=== PATIENT | female | born 1985 | race Caucasian/White ===

== ENCOUNTER 2022-11-12 15:38 | Outpatient (REF) | payer OTHER, MEDICAID, SELFPAY ==
[2022-11-12 17:34] LABS: Influenza A PCR NEGATIVE (Negative); Influenza B PCR NEGATIVE (Negative); Resp Syncy Virus RNA Qual PCR NEGATIVE (Negative); SARS COV2 PCR INHOUSE NEGATIVE (Negative)
== END 2022-11-12 15:39 | disposition home or self-care (01) ==
LOC: HO.LAB 15:38
PROVIDERS: Visit Provider Internal Medicine
DX: R09.89 Other specified symptoms and signs involving the circulatory and respiratory systems (principal); Z20.822 Contact with and (suspected) exposure to COVID-19
CPT/HCPCS: 0241U

== ENCOUNTER 2023-12-31 08:13 | Outpatient (AMB) | payer OTHER, SELFPAY ==
--- OUTSIDE RECORDS SUMMARY | 2023-12-31 08:15 | XMS_ITS | Continuity of Care Document ---
Author Name Unknown Organization [facility] er Address [address] [address]- Care Team Providers Care Registered Nurse Cardiac Name Role Phone Not on Staff, PCP Primary Care Physician Unavail able [facility]): 01/20/23 - 01/27/[address] [address] Attending Physician: Marline Ibarra Admitting Physician: Marline Ibarra Problem List Condition Confirmation Course Effective Dates Status Health St atus Informant Adjustment disorder with depressed mood Confirmed Active Note * Marline Ibarra: PERFORM, SIGN, VERIFY Event Display: Patient Education/Instruction Authored Date: [id number] [facility] *FAM ADVO Clinical Summary Name EULOGIO MEJÍA Age 37 Years 1985 PCP Not on Staff, PCP PCP Phone Visit Date 01/20/2023 16:00:00 Additional Instructions: Scheduled Appointments?? Future Appointments ?No Future Appointments Scheduled Follow-Up Instructions ?? With: Address: When: Marline FERNANDO [address] [place] [address] Business (1) In 6 weeks 03/03/2023 Comments: Phone session Diagnosis Medications: Please continue your medications until treatment is completed or stopped by your provider. Discuss any questions related to medications with your provider. Allergy Info:?? Medications Given This Visit Future Orders ?No future orders Vital Signs Height Weight BMI Blood Pressure / Temperature Pulse Rate Respiratory Rate 02 Sat Mode of Delivery / You can now view a summary of your hospital visit from the comfort of your home through a free online portal called eTect. eTect is a website that allows you to securely view your medical information including discharge summary, medications and follow-up visits. ??You can alsosend a secure electronic message to your doctor???s office to request appointments, renew medications or just ask a question. You can enroll at [email or web address] or register during your next office visit. Disclaimer:?? The information provided is of a general nature and is intended to be used in conjunction with the recommendations and advice of your health care practitioner. ??Every effort has been made to ensure that the information provided is accurate and complete at the time it is provided to you however, as your needs change, or, as new ??information becomes available, different or additional instructions may be required. If you have questions, please consult with your primary care provider or pharmacist, as appropriate. ??This information is not intended to serve as substitution for assessment and evaluation by a qualified health care provider. If you do not have a primary care provider, you may find a [facility] provider by calling [facility] [employer] at [phone]. For information about the plan of care including goals and instructions for your diagnosis, please see the patient education orders section of this document. Patient Education Materials?? The content of this educational material or handout may have been modified, supplemented, or adapted from its original content and format to support your individualized medical care. Patient Care team information Care Team Personnel Name: Not on Staff, PCP Position: [facility] Physician (General Medicine) Member Role: PCP Care Team Related Persons Name: AUNDREA MEJÍA Address: [address] [address]
--- OUTSIDE RECORDS SUMMARY | 2023-12-31 08:15 | XMS_ITS | Continuity of Care Document ---
Author Name Unknown Organization [facility] er Address [address] [address]- Care Team Providers Care Notcher Name Role Phone Not on Staff, PCP Primary Care Physician Unavail able [facility]s): 01/22/23 - 04/02/[address] [address] Attending Physician: Marline Ibarra Admitting Physician: Marline Ibarra Problem List Condition Confirmation Course Effective Dates Status Health St atus Informant Adjustment disorder with depressed mood Confirmed Active Patient Care team information Care Team Personnel Name: Not on Staff, PCP Position: S Physician (General Medicine) Member Role: PCP Care Team Related Persons Name: AUNDREA MEJÍA Address: home [address] [place] [address]
--- OUTSIDE RECORDS SUMMARY | 2023-12-31 08:15 | XMS_ITS | Continuity of Care Document ---
Author Name Unknown Organization [facility] er Address [address] [place] [address]- Care Team Providers Care Hip Hop Artist Name Role Phone Not on Staff, PCP Primary Care Physician Unavail able [facility](s): 12/16/22 - 12/23/[address] [address] Attending Physician: Marline Ibarra Admitting Physician: Marline Ibarra Problem List Condition Confirmation Course Effective Dates Status Health St atus Informant Adjustment disorder with depressed mood Confirmed Active Note * Marline Ibarra: PERFORM, SIGN, VERIFY Event Display: Patient Education/Instruction Authored Date: [id number] [facility] *FAM ADVO Clinical Summary Name EULOGIO TYLER Age 37 Years 1985 PCP Not on Staff, PCP PCP Phone Visit Date 12/16/2022 16:16:00 Additional Instructions: Scheduled Appointments?? Future Appointments ?No Future Appointments Scheduled Follow-Up Instructions ?? With: Address: When: Marline FERNANDO [address] [place] [address] [facility] (1) 01/20/2023 4:00 PM Comments: Phone session Diagnosis Medications: Please continue [...] home through a free online portal called WhistleTalk. WhistleTalk is a website that allows you to securely view your medical information including discharge summary, medications and follow-up visits. ??You can alsosend a secure electronic message to your doctor???s office to request appointments, renew medications or just ask a question. You can enroll at [email or web address] or register during your next office visit. [...] primary care provider, you may find a [facility] provider by calling [facility] [employer] at [phone]. For information about the plan of care [...] Personnel Name: Not on Staff, PCP Position: [facility] Physician (General Medicine) Member Role: PCP Care Team Related Persons Name: MEJÍAPILAR WALTONIA Address: [address] [address]
--- OUTSIDE RECORDS SUMMARY | 2023-12-31 08:16 | XMS_ITS | Continuity of Care Document ---
Author Name Unknown Organization [facility] er Address [address] [place] [address]- Care Team Providers Care Maintenance Inspector Name Role Phone Not on Staff, PCP Primary Care Physician Unavail able [facility](s): 05/30/23 - 06/06/[address] [address] Attending Physician: Marline Ibarra Admitting Physician: Marline Ibarra Problem List Condition Confirmation Course Effective Dates Status Health St atus Informant Adjustment disorder with depressed mood Confirmed Active Note * Marline Ibarra: PERFORM, SIGN, VERIFY Event Display: Patient Education/Instruction Authored Date: [id number] [facility] *FAM ADVO Clinical Summary Name EULOGIO TYLER Age 38 Years 1985 PCP Not on Staff, PCP PCP Phone Visit Date 05/30/2023 16:00:00 Additional Instructions: Scheduled Appointments?? Future Appointments ?No Future Appointments Scheduled Follow-Up Instructions ?? With: Address: When: Marline FERNANDO [address] [place] [address] Business (1) 08/01/2023 3:30 PM Comments: Phone session Diagnosis Medications: Please [...] home through a free online portal called logtrust. logtrust is a website that allows you to securely view your medical information including discharge summary, medications and follow-up visits. ??You can alsosend a secure electronic message to your doctor???s office to request appointments, renew medications or just ask a question. You can enroll at [email or web address] or register during your next office [...] primary care provider, you may find a [facility] provider by calling [facility] [employer] Link at [phone]. For information about the plan of care [...] Personnel Name: Not on Staff, PCP Position: [facility] Physician (General Medicine) Member Role: PCP Care Team Related Persons Name: PILAR MEJÍAIA Address: [address] [address]
--- OUTSIDE RECORDS SUMMARY | 2023-12-31 08:16 | XMS_ITS | Continuity of Care Document ---
Author Name Unknown Organization [facility] er Address [address] [place] [address]- Care Team Providers Care Baking Powder Mixer Name Role Phone Not on Staff, PCP Primary Care Physician Unavail able Encounter [facility] Date(s): 10/24/23 - 10/31/[address] [address] Attending Physician: Marline Brooks Admitting Physician: Marline Brooks Problem List Condition Confirmation Course Effective Dates Status Health St atus Informant Adjustment disorder with depressed mood Confirmed Active Note * Marline Brooks: PERFORM, SIGN, VERIFY Event Display: Patient Education/Instruction Authored Date: [id number] [facility] *FAM ADVO Clinical Summary Name EULOGIO TYLER Age 38 Years 1985 PCP Not on Staff, PCP PCP Phone Visit Date 10/24/2023 15:39:00 Additional Instructions: Scheduled Appointments?? Future Appointments ?No Future Appointments Scheduled Follow-Up Instructions ?? With: Address: When: Marline Martinez [address] [place] [address] Business (1) 12/05/2023 3:00 PM Comments: Phone session Diagnosis Medications: Please [...] home through a free online portal called Videum. Videum is a website that allows you to securely view your medical information including discharge summary, medications and follow-up visits. ??You can alsosend a secure electronic message to your doctor???s office to request appointments, renew medications or just ask a question. You can enroll at [email or web address] or register during your next office visit. [...] primary care provider, you may find a [facility] provider by calling [facility] [employer] Link at [phone]. [facility], in keeping with [facility] guidance, no longer requires face masks for staff, patientsor visitors in most situations. Similar to time spent indoors at other locations, there is the chance that you were exposed to respiratory viruses during your time with us (such as flu or COVID-19).? If you develop symptoms concerning for a viral respiratory infection, please seek testing (and treatment if indicated) from your medical provider or home test kit. For information about the plan of care [...] Related Persons Name: AUNDREA MEJÍA Address: home [address] [place] [address]
--- OUTSIDE RECORDS SUMMARY | 2023-12-31 08:16 | XMS_ITS | Continuity of Care Document ---
Author Name Unknown Organization [facility] er Address [address] [place] [address]- Care Team Providers Care Application Development Team Lead Name Role Phone Not on Staff, PCP Primary Care Physician Unavail able [facility]): 10/07/22 - 10/14/[address] [address] Attending Physician: Marline Ibarra Admitting Physician: Marline Ibarra Problem List Condition Confirmation Course Effective Dates Status Health St atus Informant Adjustment disorder with depressed mood Confirmed Active Note * Marline Ibarra: PERFORM, SIGN, VERIFY Event Display: Patient Education/Instruction Authored Date: [id number] [facility] *FAM ADVO Clinical Summary Name EULOGIO TYLER Age 37 Years 1985 PCP Not on Staff, PCP PCP Phone Visit Date 10/07/2022 16:10:00 Additional Instructions: Scheduled Appointments?? Future Appointments ?No Future Appointments Scheduled Follow-Up Instructions ?? With: Address: When: Marline FERNANDO [address] [place] [address] [facility] (1) 11/18/2022 4:00 PM Comments: Phone session Diagnosis Medications: [...] home through a free online portal called [employer]. [employer] is a website that allows you to securely view your medical information including discharge summary, medications and follow-up visits. ??You can alsosend a secure electronic message to your doctor???s office to request appointments, renew medications or just ask a question. You can enroll at [email or web address] or register during your next office [...] primary care provider, you may find a [facility] provider by calling [facility] [employer] at [phone]. For information about the plan of care [...] PCP Position: [facility] Physician (General Medicine) Member Role: PCP Care Team Related Persons Name: MEJÍASUSANNAAUNDREA Address: [address] [address]
--- OUTSIDE RECORDS SUMMARY | 2023-12-31 08:16 | XMS_ITS | Continuity of Care Document ---
Author Name Unknown Organization [facility] er Address [address] [place] [address]- Care Team Providers Care Cigar Wrapper Tender Automatic Name Role Phone Not on Staff, PCP Primary Care Physician Unavail able [facility]counter [facility] Date(s): 03/06/23 - 03/13/[address] [address] Attending Physician: Marline Ibarra Admitting Physician: Marline Ibarra Problem List Condition Confirmation Course Effective Dates Status Health St atus Informant Adjustment disorder with depressed mood Confirmed Active Note * Marline Ibarra: PERFORM, SIGN, VERIFY Event Display: Patient Education/Instruction Authored Date: [id number] [facility] *FAM ADVO Clinical Summary Name EULOGIO MEJÍA Age 38 Years 1985 PCP Not on Staff, PCP PCP Phone Visit Date 03/06/2023 14:00:00 Additional Instructions: Scheduled Appointments?? Future Appointments ?No Future Appointments Scheduled Follow-Up Instructions ?? With: Address: When: Marline FERNANDO [address] [place] [address] [facility] (1) 04/14/2023 3:00 PM Comments: Phone session Diagnosis Medications: [...] home through a free online portal called Uppidy. Uppidy is a website that allows you to [...] care provider, you may find a [facility] provider by calling [facility] [employer] at [phone]. For information about the plan of care [...] Not on Staff, PCP Position: [facility] Physician (General Medicine) Member Role: PCP Care Team Related Persons Name: MEJÍASUSANNAAUNDREA Address: [address] [address]
--- OUTSIDE RECORDS SUMMARY | 2023-12-31 08:16 | XMS_ITS | Continuity of Care Document ---
Author Name Unknown Organization [facility] er Address [address] [place] [address]- Care Team Providers Care Public Relations Name Role Phone Not on Staff, PCP Primary Care Physician Unavail able [facility]counter [facility] Date(s): 09/15/23 - 11/23/[address] [address] Attending Physician: Marline Brooks Admitting Physician: Marline Brooks Problem List Condition Confirmation Course Effective Dates Status Health St atus Informant Adjustment disorder with depressed mood Confirmed Active Patient Care team information Care Team Personnel Name: Not on Staff, PCP Position: S Physician (General Medicine) Member Role: PCP Care Team Related Persons Name: AUNDREA MEJÍA Address: home [address] [place] [address]
--- OUTSIDE RECORDS SUMMARY | 2023-12-31 08:17 | XMS_ITS | Continuity of Care Document ---
Author Name Unknown Organization [facility] er Address [address] [address]- Care Team Providers Care Cabin Outfitter Name Role Phone Not on Staff, PCP Primary Care Physician Unavail able [facility]counter [facility] Date(s): 04/14/23 - 04/21/[address] [address] Attending Physician: Marline Ibarra Admitting Physician: Marline Ibarra Problem List Condition Confirmation Course Effective Dates Status Health St atus Informant Adjustment disorder with depressed mood Confirmed Active Patient Care team information Care Team Personnel Name: Not on Staff, PCP Position: S Physician (General Medicine) Member Role: PCP Care Team Related Persons Name: AUNDREA MEJÍA Address: home [address] [place] [address]
--- OUTSIDE RECORDS SUMMARY | 2023-12-31 08:17 | XMS_ITS | Continuity of Care Document ---
Author Name Unknown Organization [facility] er Address [address] [place] [address]- Care Team Providers Care Ammunition Components Inspector Name Role Phone Not on Staff, PCP Primary Care Physician Unavail able [facility]counter [facility](s): 09/12/23 - 09/19/[address] [address] Attending Physician: Marline Brooks Admitting Physician: Marline Brooks Problem List Condition Confirmation Course Effective Dates Status Health St atus Informant Adjustment disorder with depressed mood Confirmed Active Note * Marline Brooks: PERFORM, SIGN, VERIFY Event Display: Patient Education/Instruction Authored Date: [id number] [facility] *FAM ADVO Clinical Summary Name EULOGIO MEJÍA Age 38 Years 1985 PCP Not on Staff, PCP PCP Phone Visit Date 09/12/2023 15:47:00 Additional Instructions: Scheduled Appointments?? Future Appointments ?No Future Appointments Scheduled Follow-Up Instructions ?? With: Address: When: Marline Martinez [address] [place] [address] Business (1) 10/24/2023 3:30 PM Comments: Phone Session Diagnosis Medications: Please continue your medications until [...] home through a free online portal called [employer]handyhand. [employer]hand[employer] is a website that allows you to securely view your medical information including discharge summary, medications and follow-up visits. ??You can alsosend a secure electronic message to your doctor???s office to request appointments, renew medications or just ask a question. You can enroll at [email or web address] or register during your next [...] care provider, you may find a [facility] provider by calling [facility] [employer] Link at [phone]. [facility], in keeping with [facility] guidance, no longer requires face masks [...] Related Persons Name: AUNDREA MEJÍA Address: home [address] [place] [address]
--- OUTSIDE RECORDS SUMMARY | 2023-12-31 08:17 | XMS_ITS | Continuity of Care Document ---
Author Name Unknown Organization [facility] er Address [address] [place] [address]- Care Team Providers Care Food Service Worker Name Role Phone Not on Staff, PCP Primary Care Physician Unavail able [facility](s): 12/05/23 - 12/12/[address] [address] Attending Physician: Marline Brooks Admitting Physician: Marline Brooks Problem List Condition Confirmation Course Effective Dates Status Health St atus Informant Adjustment disorder with depressed mood Confirmed Active Note * Marline Brooks: PERFORM, SIGN, VERIFY Event Display: Patient Education/Instruction Authored Date: [id number] [facility] *FAM ADVO Clinical Summary Name EULOGIO TYLER Age 38 Years 1985 PCP Not on Staff, PCP PCP Phone Visit Date 12/05/2023 15:00:00 Additional Instructions: Scheduled Appointments?? Future Appointments ?No Future Appointments Scheduled Follow-Up Instructions ?? With: Address: When: Marline Martinez [address] [place] [address] Business (1) 01/16/2024 3:00 PM Comments: Phone session Diagnosis Medications: [...] home through a free online portal called [employer]. [employer] is a website that allows you to securely view your medical information including discharge summary, medications and follow-up visits. ??You can alsosend a secure electronic message to your doctor???s office to request appointments, renew medications or just ask a question. You can enroll at [email or web address] or register during your next office [...] [facility] provider by calling [facility] [employer] Link at [phone]. [facility], in keeping with [facility] guidance, no longer requires face masks [...] Persons Name: AUNDREA MEJÍA Address: home [address] [place] [address]
--- OUTSIDE RECORDS SUMMARY | 2023-12-31 08:17 | XMS_ITS | Continuity of Care Document ---
Author Name Unknown Organization [facility] er Address [address] [address]- Care Team Providers Care Core Blower Operator Name Role Phone Not on Staff, PCP Primary Care Physician Unavail able [facility]counter [facility](s): 09/03/22 - 10/30/[address] [address] Attending Physician: Marline Ibarra Admitting Physician: Marline Ibarra Problem List Condition Confirmation Course Effective Dates Status Health St atus Informant Adjustment disorder with depressed mood Confirmed Active Patient Care team information Care Team Personnel Name: Not on Staff, PCP Position: S Physician (General Medicine) Member Role: PCP Care Team Related Persons Name: AUNDREA MEJÍA Address: home [address] [place] [address]
--- OUTSIDE RECORDS SUMMARY | 2023-12-31 08:17 | XMS_ITS | Continuity of Care Document ---
Author Name Unknown Organization [facility] er Address [address] [address]- Care Team Providers Care Grocery Department Manager Name Role Phone Not on Staff, PCP Primary Care Physician Unavail able [facility]counter [facility] Date(s): 04/23/23 - 06/25/[address] [address] Attending Physician: Marline Ibarra Admitting Physician: Marline Ibarra Problem List Condition Confirmation Course Effective Dates Status Health St atus Informant Adjustment disorder with depressed mood Confirmed Active Patient Care team information Care Team Personnel Name: Not on Staff, PCP Position: S Physician (General Medicine) Member Role: PCP Care Team Related Persons Name: AUNDREA MEJÍA Address: home [address] [place] [address]
--- OUTSIDE RECORDS SUMMARY | 2023-12-31 08:17 | XMS_ITS | Continuity of Care Document ---
Author Name Unknown Organization [facility] er Address [address] [place] [address]- Care Team Providers Care Hand Nailer Name Role Phone Not on Staff, PCP Primary Care Physician Unavail able [facility]counter [facility] Date([facility]): 08/[facility]/23 - 08/08/[address] [address] Attending Physician: Marline Ibarra Admitting Physician: Marline Ibarra Problem List Condition Confirmation Course Effective Dates Status Health St atus Informant Adjustment disorder with depressed mood Confirmed Active Note * Marline Ibarra: PERFORM, SIGN, VERIFY Event Display: Patient Education/Instruction Authored Date: [id number] [facility] *FAM ADVO Clinical Summary Name EULOGIO TYLER Age 38 Years 1985 PCP Not on Staff, PCP PCP Phone Visit Date 08/01/2023 15:33:00 Additional Instructions: Scheduled Appointments?? Future Appointments ?No Future Appointments Scheduled Follow-Up Instructions ?? With: Address: When: Marline FERNANDO [address] [place] [address] Business (1) 09/12/2023 3:30 PM Comments: Phone session Diagnosis Medications: [...] home through a free online portal called [email or web address]. [email or web address] is a website that allows you to securely view your medical information including discharge summary, medications and follow-up visits. ??You can alsosend a secure electronic message to your doctor???s office to request appointments, renew medications or just ask a question. You can enroll at [email or web address] or register during your next office visit. [...] care provider, you may find a [facility] provider by calling [facility] [employer] Link at [phone]. [facility], in keeping with [facility] guidance, no longer requires face masks for [...] Persons Name: AUNDREA MEJÍA Address: home [address] [place] [address]
--- OUTSIDE RECORDS SUMMARY | 2023-12-31 08:18 | XMS_ITS | Continuity of Care Document ---
Author Name Unknown Organization [facility] er Address [address] [place] [address]- Care Team Providers Care Medical Instructor Name Role Phone Not on Staff, PCP Primary Care Physician Unavail able [facility]counter [facility] Date(s): 11/18/22 - 11/25/[address] [address] Attending Physician: Marline Ibarra Admitting Physician: Marline Ibarra Problem List Condition Confirmation Course Effective Dates Status Health St atus Informant Adjustment disorder with depressed mood Confirmed Active Note * Marline Ibarra: PERFORM, SIGN, VERIFY Event Display: Patient Education/Instruction Authored Date: [id number] [facility] *FAM ADVO Clinical Summary Name EULOGIO TYLER Age 37 Years 1985 PCP Not on Staff, PCP PCP Phone Visit Date 11/18/2022 16:18:00 Additional Instructions: Scheduled Appointments?? Future Appointments ?No Future Appointments Scheduled Follow-Up Instructions ?? With: Address: When: Marline FERNANDO [address] [place] [phone] [facility] (1) 12/16/2022 4:00 PM Comments: Phone Session Diagnosis Medications: Please [...] home through a free online portal called [employer]. [employer] is a website that allows you to securely view your medical information including discharge summary, medications and follow-up visits. ??You can alsosend a secure electronic message to your doctor???s office to request appointments, renew medications or just ask a question. You can enroll at [email or web address] or register during your next office visit. [...] primary care provider, you may find a [facility] provider by calling [facility] [employer] Link at [phone]. For information about the plan of care [...] Personnel Name: Not on Staff, PCP Position: [facility] Physician (General Medicine) Member Role: PCP Care Team Related Persons Name: PILAR MEJÍAIA Address: [address] [address]
--- NOTE | 2023-12-31 08:26 | AM.OFFWIN_ITS ---
Intake Vital Signs 12/31/23 08:28 Weight 192 lb BP 118/70 Blood Pressure Location Lt brachial Position Sitting Pulse 86 Pulse Source Pulse Oximeter Temp 98.8 F Temp Source Temporal Artery Scan Pulse Oximetry (%) 97 Oxygen Delivery Method Room Air Intake Visit Reasons: EP Bilateral Ear pain Intake Note: pt is here today for bilateral ear pain started 1 week ago Patient Tobacco Use Status: Never used Tobacco Allergies azithromycin [Zithromax Z-Vivek] Allergy (Unknown, Verified 12/31/23 08:26) rash latex Allergy (Unknown, Verified 12/31/23 08:26) HIVES pseudoephedrine Adverse Reaction (Unknown, Verified 12/31/23 08:26) AGITATION Antihistamine Allergy (Unknown, Uncoded 11/12/22 11:16) rash Latex Allergy (Unknown, Uncoded 11/12/22 11:16) rash Do you need a note to return to daycare/school/sports/work: No HPI HPI Comments History of Present Illness Details She presents with ear pain She said recent illness with covid; She tested + last week Had headaches, congestion, sinus congestion Now onset ear pain; she said more R side than L Ongoing x 2 days She said better now, was worse this am Dull ache PFSH Social History Patient Tobacco Use Status: Never used Tobacco Review of Systems Const Denies chills and Denies fever(s) ENT Denies ear discharge, Reports otalgia, Reports nasal discharge and Denies sore throat Card Denies dyspnea Resp Denies cough and Denies dyspnea Musc Denies myalgias Physical Exam Vital Signs: Last Vital Signs Temp 98.8 F 12/31/23 08:28 Pulse 86 12/31/23 08:28 BP 118/70 12/31/23 08:28 Pulse Ox 97 12/31/23 08:28 Oxygen Delivery Method Room Air 12/31/23 08:28 General: Non-toxic, NAD. Speaking full sentences. Skin: Warm dry throughout Eye: EOMI HENT: Airway patent. Uvula midline. No pharyngeal erythema or edema. 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 Bilateral canals clear.Small amount of fluid bilaterally. TM non-erythematous, non-bulging. No TM perforation or hemotympanum noted. Respiratory: CTA bilaterally. No wheezes, rales or rhonchi Cardiac: RRR. No murmur MSK: Full ROM extremities. Neurology: A/O. No aphasia or facial droop. Gait without abnormality Psych: Good mood and affect Assessment & Plan Assessment & Plan (1) Otalgia of both ears: Code(s): H92.03 - Otalgia, bilateral Plan: Patient seen and evaluated. No OM or OE on exam Discussed nasal spray Patient gave verbal understanding and had no additional questions or concerns at time of discharge All questions answered (2) Eustachian tube dysfunction: Code(s): H69.90 - Unspecified Eustachian tube disorder, unspecified ear Qualifiers: Laterality: bilateral Qualified Code(s): H69.93 - Unspecified Eustachian tube disorder, bilateral Plan: see above Medications: New ipratropium bromide administer into each nostril 2 sprays intranasal BID-TID 1 week PRN 30 mL 0RF allergy symptoms Coding Level of Care Code Est Pt Level 3 (72617) Diagnoses Otalgia of both ears H92.03 Dysfunction of both eustachian tubes H69.93 Laterality: bilateral
[2023-12-31 08:28] VITALS: BP 118/70; PULSE 86; TEMP 37.1; O2SAT 97
== END 2023-12-31 09:13 | disposition home or self-care (01) ==
PROVIDERS: PCP Internal Medicine; Visit Provider Physician Assistant
DX: H92.03 Otalgia, bilateral (principal); H69.93 Unspecified Eustachian tube disorder, bilateral
CPT/HCPCS: 99213

== ENCOUNTER 2024-01-02 12:35 | Outpatient (AMB) | payer OTHER, SELFPAY ==
--- NOTE | 2024-01-02 12:41 | AM.OFFWIN_ITS ---
Intake Vital Signs 01/02/24 12:50 Weight 194 lb BP 120/100 H Blood Pressure Location Lt brachial Position Sitting Pulse 70 Pulse Source Pulse Oximeter Temp 97.4 F Temp Source Temporal Artery Scan Pulse Oximetry (%) 98 Oxygen Delivery Method Room Air Intake Visit Reasons: EP sinus pain/pressure Intake Note: pt is here today for sinus pain pressure started 2 days ago Patient Tobacco Use Status: Never used Tobacco Allergies azithromycin [Zithromax Z-Vivek] Allergy (Unknown, Verified 01/02/24 12:42) rash latex Allergy (Unknown, Verified 01/02/24 12:42) HIVES pseudoephedrine Adverse Reaction (Unknown, Verified 01/02/24 12:42) AGITATION Antihistamine Allergy (Unknown, Uncoded 11/12/22 11:16) rash Latex Allergy (Unknown, Uncoded 11/12/22 11:16) rash Do you need a note to return to daycare/school/sports/work: Yes HPI HPI Comments History of Present Illness Details 38 y/o female who presents to walk in [facility] with c/o sinus pressure x 2 days. Denies fevers, chills, nausea or vomiting. She was recently (Fri) with similar symptoms and given Nasal [place] which she reports not working. Recent COVID 19 Infection x 1 week ago. Her family sick from COVID infection. [facility] Social History Patient Tobacco Use Status: Never used Tobacco Review of Systems Const All systems reviewed & are unremarkable except as noted in HPI and below Physical Exam Vital Signs: Last Vital Signs Temp 97.4 F 01/02/24 12:50 Pulse 70 01/02/24 12:50 BP 120/100 H 01/02/24 12:50 Pulse Ox 98 01/02/24 12:50 Oxygen Delivery Method Room Air 01/02/24 12:50 Const General: comfortable and no acute distress HEENT Head: Yes normocephalic and Yes atraumatic Ears: external ears normal and TM's normal bilaterally General nose exam: Abnormal mucous membranes and turbinates present boggy and erythematous and Nasal discharge present Face and sinus: Yes sinuses nontender Mouth: moist mucous membranes Throat: Yes uvula midline and Yes postnasal drainage Resp Effort & Inspection: normal respiratory effort and able to speak in complete sentences Auscultation: clear to auscultation bilaterally Cardio Rate: regular rate Rhythm: regular rhythm Assessment & Plan Assessment & Plan (1) Upper respiratory tract infection: Code(s): J06.9 - Acute upper respiratory infection, unspecified Qualifiers: URI type: unspecified viral URI Qualified Code(s): J06.9 - Acute upper respiratory infection, unspecified Plan: - Warm fluids - Rest - OTC cold remedies - Acetaminophen for pain relief. Orders: Orders SARS-CoV2/FLU/RSV Today J06.9 - Acute upper respiratory infection, unspecified Medications: New amoxicillin 250 mg PO BID 10 caps 0RF 5 days J06.9 - Acute upper respiratory infection, unspecified Coding Level of Care Code Est Pt Level 3 (36955) Diagnoses Viral upper respiratory tract infection J06.9 URI type: unspecified viral URI Time Spent (min) 15
[2024-01-02 12:50] VITALS: BP 120/100; PULSE 70; TEMP 36.3; O2SAT 98
== END 2024-01-02 13:24 | disposition home or self-care (01) ==
PROVIDERS: PCP Internal Medicine; Visit Provider Nurse Practitioner Family
DX: J06.9 Acute upper respiratory infection, unspecified (principal)
CPT/HCPCS: 99213

== ENCOUNTER 2024-01-02 13:13 | Outpatient (REF) | payer OTHER, SELFPAY ==
[2024-01-02 17:02] LABS: Influenza A PCR NEGATIVE (Negative); Influenza B PCR NEGATIVE (Negative); Resp Syncy Virus RNA Qual PCR NEGATIVE (Negative); SARS COV2 PCR INHOUSE POSITIVE (Negative)
== END 2024-01-02 13:14 | disposition home or self-care (01) ==
LOC: HO.LAB 13:13
PROVIDERS: Visit Provider Nurse Practitioner Family
DX: Z11.52 Encounter for screening for COVID-19 (principal); Z20.822 Contact with and (suspected) exposure to COVID-19; J06.9 Acute upper respiratory infection, unspecified
CPT/HCPCS: 0241U

== ENCOUNTER 2024-02-10 13:32 | Outpatient (AMB) | payer OTHER, SELFPAY ==
--- OUTSIDE RECORDS SUMMARY | 2024-02-10 13:37 | XMS_ITS | Continuity of Care Document ---
Author Name Unknown Organization [facility] er Address [address] [place] [address]- Care Team Providers Care Ux Designer Name Role Phone Not on Staff, PCP Primary Care Physician Unavail able [place] [facility] [place] 01/16/24 - 01/23/[address] [address]- Attending Physician: Marline Brooks Admitting Physician: Marline Brooks Problem List Condition Confirmation Course Effective Dates Status Health St atus Informant Adjustment disorder with depressed mood Confirmed Active Note * Marline Brooks: PERFORM, SIGN, VERIFY Event Display: Patient Education/Instruction Authored Date: [id number] [facility] *FAM ADVO Clinical Summary Name EULOGIO TYLER Age 38 Years 1985 PCP Not on Staff, PCP PCP Phone Visit Date 01/16/2024 15:04:00 Additional Instructions: Scheduled Appointments?? Future Appointments ?No Future Appointments Scheduled Follow-Up Instructions ?? With: Address: When: Marline Martinez [address] [place] [address] [facility] (1) 02/27/2024 3:00 PM Comments: Phone session Diagnosis Medications: Please continue your medications until treatment is completed or stopped by your provider. Discuss any questions related to medications with your provider. Allergy Info:?? Medications Given This Visit Future Orders ?No future orders Future Orders ?No future orders Vital Signs Height Weight BMI Blood Pressure / Temperature Pulse Rate Respiratory Rate 02 Sat Mode of Delivery / You can now view a summary of your hospital visit from the comfort of your home through a free online portal called [employer]. [employer] is a website that allows you to securely view your medical information including discharge summary, medications and follow-up visits. ??You can alsosend a secure electronic message to your doctor???s office to request appointments, renew medications or just ask a question. You can enroll at [email or web address] or register during your next office [...] primary care provider, you may find a [facility] provider by calling [facility] Link at [phone]. [facility], in keeping with [facility] guidance, no longer requires face masks [...] Personnel Name: Not on Staff, PCP Position: [facility] Physician (General Medicine) Member Role: PCP Care Team Related Persons Name: AUNDREA MEJÍA Address: [address] [address]
[2024-02-10 13:55] VITALS: BP 118/76; PULSE 81; TEMP 36.6; O2SAT 97; BMI 30.6
--- NOTE | 2024-02-10 13:55 | AM.OFFWIN_ITS ---
Intake Vital Signs 02/10/24 13:55 Height 5 ft 8 in Weight 201 lb BMI 30.6 BP 118/76 Blood Pressure Location Lt brachial Position Sitting Pulse 81 Pulse Source Pulse Oximeter Temp 97.8 F Temp Source Temporal Artery Scan Pulse Oximetry (%) 97 Oxygen Delivery Method Room Air Intake Visit Reasons: EP sinus/ear infection migraine (lobby) Intake Note: pt is here today for sinus ear infection migraine started friday Patient Tobacco Use Status: Never used Tobacco Allergies azithromycin [Zithromax Z-Vivek] Allergy (Unknown, Verified 02/10/24 13:58) rash latex Allergy (Unknown, Verified 02/10/24 13:58) HIVES pseudoephedrine Adverse Reaction (Unknown, Verified 02/10/24 13:58) AGITATION Antihistamine Allergy (Unknown, Uncoded 11/12/22 11:16) rash Latex Allergy (Unknown, Uncoded 11/12/22 11:16) rash Do you need a note to return to daycare/school/sports/work: No HPI HPI Comments History of Present Illness Details 39-year-old female presents today compla ining of migraine that is lasted for a couple of days she thinks maybe it is triggered by ear pain our an ear infection. PFSH Social History Patient Tobacco Use Status: Never used Tobacco Review of Systems Const All systems reviewed & are unremarkable except as noted in HPI and below Reports headache(s) (Typical migraine for the patient) Eyes Reports no additional complaints ENT Reports otalgia, Reports headache(s) (Typical migraine for the patient) and Reports nasal congestion Card Reports no additional complaints Resp Reports no additional complaints GI Reports no additional complaints Neuro Reports headache(s) (Typical migraine for the patient) Physical Exam Vital Signs: Last Vital Signs Temp 97.8 F 02/10/24 13:55 Pulse 81 02/10/24 13:55 BP 118/76 02/10/24 13:55 Pulse Ox 97 02/10/24 13:55 Oxygen Delivery Method Room Air 02/10/24 13:55 BMI result Body Mass Index 30.6 Const General: no acute distress HEENT Head: Yes normal to inspection, Yes normocephalic and Yes atraumatic Ears: hearing grossly normal bilaterally, external ears normal, EAC's normal and TM abnormal bulging and erythematous General nose exam: Normal external nose present Face and sinus: Yes normal facial exam and Yes sinus tenderness (frontal sinus tenderness) Throat: Yes posterior oropharynx normal Resp Effort & Inspection: normal respiratory effort Auscultation: clear to auscultation bilaterally Cardio Rate: regular rate Rhythm: regular rhythm Assessment & Plan Assessment & Plan (1) Otitis media: Code(s): H66.90 - Otitis media, unspecified, unspecified ear Plan: take amoxicillin and f/u with PCP for migraine if it continues Plan see plan Medications: New amoxicillin 875 mg PO BID 7 days 14 tabs 0RF Coding Level of Care Code Est Pt Level 3 (32420) Diagnoses Otitis media H66.90
== END 2024-02-10 15:03 | disposition home or self-care (01) ==
PROVIDERS: PCP Internal Medicine; Visit Provider Physician Assistant Medical
DX: H66.90 Otitis media, unspecified, unspecified ear (principal)
CPT/HCPCS: 99213

== ENCOUNTER 2024-04-19 14:57 | Outpatient (AMB) | payer OTHER, SELFPAY ==
[2024-04-19 14:59] VITALS: BP 122/82; PULSE 83; TEMP 37.2; O2SAT 98
--- NOTE | 2024-04-19 14:59 | MHC.OFFWIV ---
Intake Vital Signs 04/19/24 14:59 Height 5 ft 8 in BP 122/82 Blood Pressure Location Rt brachial Position Sitting Pulse 83 Pulse Source Pulse Oximeter Temp 98.9 F Temp Source Oral Pulse Oximetry (%) 98 Oxygen Delivery Method Room Air Intake Visit Reasons: EP ear pain/ sore throat Intake Note: pt is here for ear pain and sore throat Patient Tobacco Use Status: Never used Tobacco Allergies azithromycin [Zithromax Z-Vivek] Allergy (Unknown, Verified 04/19/24 14:59) rash latex Allergy (Unknown, Verified 04/19/24 14:59) HIVES pseudoephedrine Adverse Reaction (Unknown, Verified 04/19/24 14:59) AGITATION Antihistamine Allergy (Unknown, Uncoded 11/12/22 11:16) rash Latex Allergy (Unknown, Uncoded 11/12/22 11:16) rash Do you need a note to return to daycare/school/sports/work: Yes HPI HPI Comments History of Present Illness Details Patient is a 39-year-old female complaining of ear pain and sore throat since Friday. She states she also had a migraine on Friday but that has evolved into just a regular headache today. She states she does get frequent ear infections and was just treated for a double ear infection about a month ago. She said she had a little bit of nausea today but no vomiting. She also denies diarrhea, fevers, changes in her hearing, shortness of breath, chest pain, sinus pain or head congestion. She states people at work have been testing positive for COVID and her son also endorsed a sore throat today. [facility] Social History Patient Tobacco Use Status: Never used Tobacco Review of Systems Const All systems reviewed & are unremarkable except as noted in HPI and below Physical Exam Vital Signs: Last Vital Signs Temp 98.9 F 04/19/24 14:59 Pulse 83 04/19/24 14:59 BP 122/82 04/19/24 14:59 Pulse Ox 98 04/19/24 14:59 Oxygen Delivery Method Room Air 04/19/24 14:59 Const General: cooperative, healthy appearing, comfortable and no acute distress Orientation/consciousness: patient oriented x3 Limitations: no limitations HEENT Head: Yes normal to inspection Ears: external ears normal and TM's normal bilaterally General nose exam: Normal external nose present, Normal nares present and Nasal discharge present clear Face and sinus: Yes normal facial exam and Yes sinuses nontender Mouth: Normal oral and palatal mucosa present and moist mucous membranes Throat: Yes tonsils normal, Yes uvula midline and Yes posterior oropharynx abnormal (Erythema) Eyes General: appearance normal, both eyes and all related structures Neck Neck: Yes normal visual inspection Resp Effort & Inspection: normal respiratory effort, able to speak in complete sentences, no respiratory distress, not tachypneic, no tripod positioning and no use of accessory muscles Auscultation: clear to auscultation bilaterally Cardio Rate: regular rate Rhythm: regular rhythm Heart sounds: normal S1 and S2 Skin General skin exam: no rashes or lesions noted Neuro General: patient oriented x3 Extrem General: Yes normal to inspection and Yes no clubbing, cyanosis or edema Assessment & Plan Assessment & Plan (1) Upper respiratory tract infection: Code(s): J06.9 - Acute upper respiratory infection, unspecified Qualifiers: URI type: unspecified viral URI Qualified Code(s): J06.9 - Acute upper respiratory infection, unspecified Plan: Sent flu/COVID/RSV, recommended [id number] treatments to treat her symptoms and to stay out of work for 2 days. If any of these tests are positive, I will call her tomorrow to discuss treatment. Gave red flag warning signs and when to go to the emergency department. Plan See above Orders: Orders SARS-CoV2/FLU/RSV Today J06.9 - Acute upper respiratory infection, unspecified Coding Level of Care Code Est Pt Level 3 (07408) Diagnoses Viral upper respiratory tract infection J06.9 URI type: unspecified viral URI
--- OUTSIDE RECORDS SUMMARY | 2024-04-19 15:01 | XMS_ITS | Continuity of Care Document ---
Author Organization [facility] er Address [address] [place] [address]- Care Team Providers Care Cigar Patcher Name Role Phone Not on Staff, PCP Primary Care Physician Unavail able [facility]): 04/[facility]/24 - 04/09/[address] [address]- Attending Physician: Marline Brooks Admitting Physician: Marline Brooks Problem List Condition Confirmation Course Effective Dates Status Health St atus Informant Adjustment disorder with depressed mood Confirmed Active Patient Care team information Care Team Personnel Name: Not on Staff, PCP Position: S Physician (General Medicine) Member Role: PCP Care Team Related Persons Name: AUNDREA MEJÍA Address: home [address] [place] [id number]
--- OUTSIDE RECORDS SUMMARY | 2024-04-19 15:01 | XMS_ITS | Continuity of Care Document ---
Author Organization [facility] er Address [address] [place] [address]- Care Team Providers Care Remote Sensing Advisor Name Role Phone Not on Staff, PCP Primary Care Physician Unavail able [facility]counter [facility] Date(s): 02/27/24 - 03/05/[address] [address]- Attending Physician: Marline Brooks Admitting Physician: Marline Brooks Problem List Condition Confirmation Course Effective Dates Status Health St atus Informant Adjustment disorder with depressed mood Confirmed Active Note * Marline Brooks: PERFORM, SIGN, VERIFY Event Display: Patient Education/Instruction Authored Date: [id number] [facility] *FAM ADVO Clinical Summary Name EULOGIO MEJÍA Age 39 Years 1985 PCP Not on Staff, PCP PCP Phone Visit Date 02/27/2024 15:00:00 Additional Instructions: Scheduled Appointments?? Future Appointments ?No Future Appointments Scheduled Follow-Up Instructions ?? With: Address: When: Marline Martinez [address] [place] [address] Business (1) 04/02/2024 4:00 PM Comments: Phone session Diagnosis Medications: [...] home through a free online portal called [employer]. [employer] is a website that allows you to securely view your medical information including discharge summary, medications and follow-up visits. ??You can alsosend a secure electronic message to your doctor???s office to request appointments, renew medications or just ask a question. You can enroll at [email or web address] or register during your next office visit. [...] primary care provider, you may find a [facility] provider by calling [facility] [employer] Link at [phone]. [facility], in keeping with [facility] guidance, no longer requires face masks [...] Team Related Persons Name: AUNDREA MEJÍA Address: [address] [address]
== END 2024-04-19 15:17 | disposition home or self-care (01) ==
PROVIDERS: PCP Internal Medicine; Visit Provider Physician Assistant
DX: J06.9 Acute upper respiratory infection, unspecified (principal)
CPT/HCPCS: 99213

== ENCOUNTER 2024-04-19 15:15 | Outpatient (REF) | payer OTHER, SELFPAY ==
[2024-04-19 18:31] LABS: Influenza A PCR NEGATIVE (Negative); Influenza B PCR NEGATIVE (Negative); Resp Syncy Virus RNA Qual PCR NEGATIVE (Negative); SARS COV2 PCR INHOUSE NEGATIVE (Negative)
== END 2024-04-19 15:16 | disposition home or self-care (01) ==
LOC: HO.LAB 15:15
PROVIDERS: Visit Provider Physician Assistant
DX: J06.9 Acute upper respiratory infection, unspecified (principal)
CPT/HCPCS: 0241U

== ENCOUNTER 2024-04-27 08:12 | Outpatient (AMB) | payer OTHER, SELFPAY ==
[2024-04-27 08:25] VITALS: BP 140/80; PULSE 89; TEMP 36.7; O2SAT 98
--- NOTE | 2024-04-27 08:25 | MHC.OFFWIV ---
Intake Vital Signs 04/27/24 08:25 Height 5 ft 8 in BP 140/80 H Blood Pressure Location Rt brachial Position Sitting Pulse 89 Pulse Source Pulse Oximeter Temp 98.1 F Temp Source Oral Pulse Oximetry (%) 98 Intake Visit Reasons: EP cold Symptoms-not better Intake Note: pt is here for cold symptoms she states she is still not getting better Patient Tobacco Use Status: Never used Tobacco Allergies azithromycin [Zithromax Z-Vivek] Allergy (Unknown, Verified 04/27/24 08:27) rash latex Allergy (Unknown, Verified 04/27/24 08:27) HIVES pseudoephedrine Adverse Reaction (Unknown, Verified 04/27/24 08:27) AGITATION Antihistamine Allergy (Unknown, Uncoded 11/12/22 11:16) rash Latex Allergy (Unknown, Uncoded 11/12/22 11:16) rash Do you need a note to return to daycare/school/sports/work: Yes HPI HPI Comments History of Present Illness Details Patient is a 39-year-old female complaining of a week of a cough, congestion, sneezing and nausea. She denies any fevers, vomiting, diarrhea or shortness of breath. She states she has been eating and drinking normally. She states she has tried taking [place] cold and flu medicine at night as well as an allergy pill 1 day but neither seemed to help a lot. She states she was seen here a week ago where she was tested for flu COVID and RSV and all 3 were negative. She denies any history of asthma. She states the cough is worse at night and she cannot stop for an hour. [facility] Social History Patient Tobacco Use Status: Never used Tobacco Review of Systems Const All systems reviewed & are unremarkable except as noted in HPI and below Physical Exam Vital Signs: Last Vital Signs Temp 98.1 F 04/27/24 08:25 Pulse 89 04/27/24 08:25 BP 140/80 H 04/27/24 08:25 Pulse Ox 98 04/27/24 08:25 Const General: cooperative, healthy appearing, comfortable and no acute distress Orientation/consciousness: patient oriented x3 Limitations: no limitations HEENT Head: Yes normal to inspection Ears: external ears normal General nose exam: Normal external nose present, Normal nares present and No nasal discharge present Face and sinus: Yes normal facial exam and Yes sinuses nontender Mouth: Normal oral and palatal mucosa present and moist mucous membranes Throat: Yes posterior oropharynx normal Eyes General: appearance normal, both eyes and all related structures Neck Neck: Yes normal visual inspection Resp Effort & Inspection: normal respiratory effort, able to speak in complete sentences, Actively coughing, no respiratory distress, not tachypneic, no tripod positioning and no use of accessory muscles Auscultation: clear to auscultation bilaterally Cardio Rate: regular rate Rhythm: regular rhythm Heart sounds: normal S1 and S2 Skin General skin exam: no rashes or lesions noted Neuro General: patient oriented x3 Extrem General: Yes normal to inspection and Yes no clubbing, cyanosis or edema Assessment & Plan Assessment & Plan (1) Atypical pneumonia: Code(s): J18.9 - Pneumonia, unspecified organism Plan VSS, sent inhaler and doxy to pharmacy. Medications: New albuterol sulfate 90 mcg/actuation 2 puffs inhalation Q6H PRN 8.5 grams 0RF shortness of breath or wheezing doxycycline hyclate 100 mg PO BID 10 tabs 0RF Coding Level of Care Code New Pt Level 4 (89146) Diagnoses Atypical pneumonia J18.9
== END 2024-04-27 08:53 | disposition home or self-care (01) ==
PROVIDERS: PCP Internal Medicine; Visit Provider Physician Assistant
DX: J18.9 Pneumonia, unspecified organism (principal)
CPT/HCPCS: 99214

== ENCOUNTER 2024-07-22 15:26 | Outpatient (AMB) | payer OTHER, SELFPAY ==
--- OUTSIDE RECORDS SUMMARY | 2024-07-22 15:29 | XMS_ITS | Continuity of Care Document ---
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 Visit: 07/02/2024 15:04?? Ambulatory Visit Instructions ?? Your Care Team Primary Care Provider Not on Staff, PCP?? This Visit Provider Marline Emerson What to do next Scheduled Follow-Up Appointments Friday 3:00 PM EDT ?? With: Marline Brooks Where: [address] [address]- Status: Pending Allergies (NKA means No Known Allergies) No active allergies Common Emergency Awareness Tips IS IT A STROKE? Act FAST and Check for these signs: FACE Does the face look uneven? ARM Does one arm drift down? SPEECH Does their speech sound strange? TIME Call at any sign of stroke ?? Heart Attack Signs Chest discomfort: Most heart attacks involve discomfort in the center of the chest and lasts more than a few minutes, or goes away and comes back. It can feel like uncomfortable pressure, squeezing, fullness or pain. Discomfort in upper body: Symptoms can include pain or discomfort in one or both arms, back, neck, jaw or stomach. Shortness of breath: With or without discomfort. Other signs: Breaking out in a cold sweat, nausea, or lightheaded. Remember, MINUTES DO MATTER. If you experience any of these heart attack warning signs, call to get immediate medical attention! ?? Smoking can increase your chances of developing chronic health problems and can cause harmful effects to other family members in your house. If you smoke, you are strongly encouraged to quit. Please call [facility] at [phone] or 4-921-645[employer] (0497) or log in to [email or web address] for referrals to smoking cessation programs. ?? The National Suicide Prevention Hotline is available 02/06 if you or someone you know needs to find a reason to keep living. By calling 4-818-990-Frequent Browser (7556) you'll be connected to a skilled, trained counselor at a crisis center in your area. [facility] Portal You can view and manage your care through the patient portal or by using a health care graham of your choosing. [employer] is a website that allows you to securely view your medical information including your hospital discharge summary, office visit summaries, medications and follow-up visits. You can also request appointments, renew medications, and request access to your medical information using a health care graham of your choosing, or just ask a question. You can enroll at [email or web address] or register during your next office visit. [facility], in keeping with [facility] guidance, no longer requires face masks for staff, patientsor visitors in most situations. Similiar to time spent indoors at other locations, there is the chance that you were exposed to repiratory viruses during your time with us (such as flu or COVID-19). If you develop symptoms concerning for a viral respiratory infection, please seek testing (and treatment if indicated) from your medical provider or home test kit. ?? Disclaimer: The information provided is of a general nature and is intended to be used in conjunction with the recommendations and advice of your health care practitioner. Every effort has been made to ensure that the information provided is accurate and complete at the time it is provided to you however, as your needs change, or, as new information becomes available, different or additional instructions may be required. ?? If you have questions, please consult with your primary care provider or pharmacist, as appropriate. This information is not intended to serve as substitution for assessment and evaluation by a qualified health care provider. If you do not have a primary care provider, you may find a [facility] provider by calling [facility] at [phone]. Patient Care team information Care Team Personnel Name: Not on Staff, PCP Position: [facility] Physician (General Medicine) Member Role: PCP Care Team Related Persons Name: AUNDREA MEJÍA Address: [address] [address]
--- NOTE | 2024-07-22 15:41 | AM.OFFWIN_ITS ---
Intake Vital Signs 07/22/24 15:43 Height 5 ft 8 in Weight 189 lb BMI 28.7 BP 132/84 Blood Pressure Location Rt brachial Position Sitting Pulse 70 Pulse Source Pulse Oximeter Temp 98.0 F Temp Source Oral Pulse Oximetry (%) 99 Oxygen Delivery Method Room Air Intake Visit Reasons: EP contact lens stuck in LT eye Intake Note: pt c/o contact lens stuck in LT eye. Unknown how long it has been in Patient Tobacco Use Status: Never used Tobacco Allergies azithromycin [Zithromax Z-Vivek] Allergy (Unknown, Verified 07/22/24 15:42) rash latex Allergy (Unknown, Verified 07/22/24 15:42) HIVES pseudoephedrine Adverse Reaction (Unknown, Verified 07/22/24 15:42) AGITATION Antihistamine Allergy (Unknown, Uncoded 07/22/24 15:42) rash Latex Allergy (Unknown, Uncoded 07/22/24 15:42) rash Do you need a note to return to daycare/school/sports/work: No HPI HPI Comments History of Present Illness Details 39 y/o female patient who presents to [facility] walk in clinic with c/o left eye discomfort. Pt believes she might have a contact lens stuck inside her left eye. Sha has been having hard time removing it. She feels like it is still inside her eye. She does have an eye doctor and they're open until late evening. [facility] Social History Patient Tobacco Use Status: Never used Tobacco Review of Systems Const All systems reviewed & are unremarkable except as noted in HPI and below Physical Exam Vital Signs: Last Vital Signs Temp 98.0 F 07/22/24 15:43 Pulse 70 07/22/24 15:43 BP 132/84 07/22/24 15:43 Pulse Ox 99 07/22/24 15:43 Oxygen Delivery Method Room Air 07/22/24 15:43 BMI result Body Mass Index 28.7 Const General: cooperative, comfortable and no acute distress Nutritional Appearance: obese Orientation/consciousness: patient oriented x3 Eyes Eyelids: Yes eyelids normal Conjunctivae: conjunctival abnormal left conjunctival injection and subconjunctival hemorrhage Corneas: corneas abnormal on the left fluorescein used and abrasion central; no contact lens present, without edema and with no foreign body noted Pupils: Equal, round and reactive pupils present EOM: EOMs intact bilaterally Neuro General: patient oriented x3 Cranial nerves: Yes Equal, round and reactive pupils present Psych Speech and movement: Normal speech and movement present Assessment & Plan Assessment & Plan (1) Cornea abrasion: Code(s): S05.00XA - Injury of conjunctiva and corneal abrasion without foreign body, unspecified eye, initial encounter Qualifiers: Encounter type: initial encounter Laterality: left Qualified Code(s): S05.02XA - Injury of conjunctiva and corneal abrasion without foreign body, left eye, initial encounter Plan: Possibly cornea Abrasion from contact lens Unable to see or remove the lens Advised Pt to call her doctor for better examination and removal. Ordered Eye Abx drops. Medications: New ciprofloxacin HCl 0.3% put 1-2 drps in affected eye every 2hr up to 8 times/day x2days; then 4 times/day x5days ophthalmic (eye) 2.5 mL 0RF Coding Level of Care Code Est Pt Level 3 (08693) Diagnoses Abrasion of left cornea, initial encounter S05.02XA Encounter type: initial encounter Laterality: left Time Spent (min) 15
[2024-07-22 15:43] VITALS: BP 132/84; PULSE 70; TEMP 36.7; O2SAT 99; BMI 28.7
== END 2024-07-22 16:11 | disposition home or self-care (01) ==
PROVIDERS: PCP Internal Medicine; Visit Provider Nurse Practitioner Family
DX: S05.02XA Injury of conjunctiva and corneal abrasion without foreign body, left eye, initial encounter (principal)
CPT/HCPCS: 99213

== ENCOUNTER 2024-10-04 12:24 | Outpatient (REF) | payer OTHER, SELFPAY ==
--- NOTE | ~2024-10-04 | XR_ITS ---
EXAMINATION: XR KNEE, LEFT CLINICAL INFORMATION: Z00.00 - Encounter for general adult medical examination without abnormal... COMPARISON: None available. TECHNIQUE: Four views of the left knee. FINDINGS: No fracture or joint effusion. Alignment is anatomic. Joint spaces are maintained. No abnormal soft tissue calcification. XR/XR knee LT 2V IMPRESSION: Normal left knee. Electronically signed by: Vega Shah MD 10/10/2024 07:15 AM [facility]IL[facility]
== END 2024-10-04 12:25 | disposition home or self-care (01) ==
LOC: HO.HMGCX 12:24
PROVIDERS: PCP Internal Medicine; Visit Provider Nurse Practitioner Family
DX: Z00.00 Encounter for general adult medical examination without abnormal findings (principal); G43.909 Migraine, unspecified, not intractable, without status migrainosus; M25.562 Pain in left knee; Z80.0 Family history of malignant neoplasm of digestive organs
CPT/HCPCS: 73560; 96127

== ENCOUNTER 2024-10-04 12:24 | Outpatient (AMB) | payer OTHER, SELFPAY ==
[2024-10-04 12:29] VITALS: BP 124/86; PULSE 81; O2SAT 99; BMI 29.1
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
== END 2024-10-04 13:21 | disposition home or self-care (01) ==
PROVIDERS: PCP Internal Medicine; Visit Provider Nurse Practitioner Family
DX: Z00.00 Encounter for general adult medical examination without abnormal findings (principal); Z80.0 Family history of malignant neoplasm of digestive organs

== ENCOUNTER 2024-10-08 09:05 | Outpatient (REF) | payer OTHER, SELFPAY ==
[2024-10-08 10:56] LABS: MANUAL DIFF FLAG NO
[2024-10-08 10:59] LABS: Appearance Urine Cloudy; Color Urine Yellow; Glucose Urine UA Negative (Negative); Leukocyte Esterase Urine Moderate (2+) (Negative); Nitrite Urine Negative (Negative); Specific Gravity - Urine 1.025 (1.005-1.025); UMIC TRIGGER UACC YES; Urine Blood Negative (Negative); Urine Ketones Negative (Negative); Urine Protein Negative (Neg-Trace)
[2024-10-08 10:59] LABS: Basophils Absolute Auto 0.1 X10*3/uL (0.0-0.2); Basophils Percent Auto 1.2 % (0-2); Eosinophils Absolute Auto 0.2 X10*3/uL (0.0-0.4); Eosinophils Percent Auto 3.6 % (0-4); Hematocrit 39.3 % (37.0-47.0); Hemoglobin 12.8 g/dl (12.0-16.0); Imm Gran Abs Auto 0.01 X10*3/uL (0.00-0.03); Imm Gran Pct Auto 0.2 % (0.0-0.4); Lymphocytes Absolute Auto 1.4 X10*3/uL (1.2-4.9); Mean Corpuscular HGB Conc 32.6 g/dl (31.0-35.0); Mean Corpuscular Hemoglobin 28.8 pg (27.0-33.0); Mean Corpuscular Volume 88.5 fL (80.0-98.0); Mean Platelet Volume 11.1 fL (9.4-12.3); Monocytes Absolute Auto 0.3 X10*3/uL (0.1-1.2); Monocytes Percent Auto 8.2 % (2-11); Neutrophils Absolute Auto 2.2 x10*3/uL (2.0-8.3); Neutrophils Percent Auto 53.8 % (45-73); Platelet Count 274 X10*3/uL (160-400); Red Blood Count 4.44 X10*6/uL (4.20-5.50); Red Cell Distribution Width 12.7 % (11.0-16.0); White Blood Count 4.2 X10*3/uL (4.8-10.8)
[2024-10-08 11:04] LABS: Bacteria Urine 3+ (None Seen); Hyaline Casts Urine 0-2 /LPF (0-2); RBC Urine 0-2 /HPF (0-2); UACC Culture Trigger YES; WBC Urine 21-50 /HPF (0-5)
[2024-10-08 11:19] LABS: Alanine Aminotransferase 19 U/L (0-31); Albumin Level 4.2 g/dL (3.5-5.0); Alkaline Phosphatase 58 U/L (39-117); Anion Gap 13 (12-20); Aspartate Amino Transferase 15 U/L (5-31); Bilirubin Total 0.4 mg/dL (0.0-1.0); Blood Urea Nitrogen 12 mg/dL (9-16); Calcium 8.7 mg/dL (8.4-10.2); Carbon Dioxide 26 mmol/L (22-29); Chloride 107 mmol/L (96-108); Cholesterol 192 mg/dL (<200); Estimated Glomerular Filt Rate > 60; Glucose Fasting 90 mg/dL (60-99); HDL Cholesterol 63 mg/dL (>40); LDL Cholesterol Calculated 120 mg/dL (<100); Sodium 142 mmol/L (135-145); Total Protein 7.2 g/dL (6.5-8.0); Triglycerides 45 mg/dL (<150)
[2024-10-08 11:38] LABS: TSH reflex Free T4 1.19 uIU/mL (0.32-4.0)
== END 2024-10-08 09:06 | disposition home or self-care (01) ==
LOC: HO.HMGCLDS 09:05
PROVIDERS: PCP Nurse Practitioner Family; Visit Provider Nurse Practitioner Family
DX: Z00.00 Encounter for general adult medical examination without abnormal findings (principal)
CPT/HCPCS: 36415; 80053; 80061; 81001; 81003; 84443; 85025; 87086

== ENCOUNTER 2024-11-15 14:46 | Outpatient (REF) | payer OTHER, SELFPAY ==
[2024-11-15 16:17] LABS: MANUAL DIFF FLAG NO
[2024-11-15 16:40] LABS: Basophils Absolute Auto 0.1 X10*3/uL (0.0-0.2); Basophils Percent Auto 1.2 % (0-2); Eosinophils Absolute Auto 0.3 X10*3/uL (0.0-0.4); Eosinophils Percent Auto 4.4 % (0-4); Hematocrit 38.8 % (37.0-47.0); Hemoglobin 12.7 g/dl (12.0-16.0); Imm Gran Abs Auto 0.01 X10*3/uL (0.00-0.03); Imm Gran Pct Auto 0.2 % (0.0-0.4); Lymphocytes Absolute Auto 1.7 X10*3/uL (1.2-4.9); Lymphocytes Percent Auto 30.1 % (20-40); Mean Corpuscular HGB Conc 32.7 g/dl (31.0-35.0); Mean Corpuscular Hemoglobin 29.2 pg (27.0-33.0); Mean Corpuscular Volume 89.2 fL (80.0-98.0); Mean Platelet Volume 11.1 fL (9.4-12.3); Monocytes Absolute Auto 0.5 X10*3/uL (0.1-1.2); Monocytes Percent Auto 8.4 % (2-11); Neutrophils Absolute Auto 3.1 x10*3/uL (2.0-8.3); Neutrophils Percent Auto 55.7 % (45-73); Platelet Count 281 X10*3/uL (160-400); Red Blood Count 4.35 X10*6/uL (4.20-5.50); Red Cell Distribution Width 12.7 % (11.0-16.0); White Blood Count 5.6 X10*3/uL (4.8-10.8)
== END 2024-11-15 14:47 | disposition home or self-care (01) ==
LOC: HO.HMGCLDS 14:46
PROVIDERS: PCP Nurse Practitioner Family; Visit Provider Nurse Practitioner Family
DX: D72.819 Decreased white blood cell count, unspecified (principal)
CPT/HCPCS: 36415; 85025

== ENCOUNTER 2024-12-08 08:06 | Outpatient (AMB) | payer OTHER, SELFPAY ==
[2024-12-08 08:17] VITALS: BP 122/80; PULSE 81; TEMP 36.5; O2SAT 98
--- NOTE | 2024-12-08 08:17 | AM.OFFWIN_ITS ---
Intake Vital Signs 12/08/24 08:17 Weight 190 lb BP 122/80 Blood Pressure Location Rt brachial Position Sitting Pulse 81 Pulse Source Pulse Oximeter Temp 97.7 F Temp Source Oral Pulse Oximetry (%) 98 Oxygen Delivery Method Room Air Intake Visit Reasons: EP-sore throat, strep, headaches, nose congestion Intake Note: Patient here for headache, sore throat, congestion which started a couple of days ago. Patient Tobacco Use Status: Never used Tobacco Allergies azithromycin [Zithromax Z-Vivek] Allergy (Unknown, Verified 12/08/24 08:25) rash latex Allergy (Unknown, Verified 12/08/24 08:25) HIVES pseudoephedrine Adverse Reaction (Unknown, Verified 12/08/24 08:25) AGITATION Antihistamine Allergy (Unknown, Uncoded 12/08/24 08:25) rash Latex Allergy (Unknown, Uncoded 12/08/24 08:25) rash Do you need a note to return to daycare/school/sports/work: Yes HPI HPI Comments History of Present Illness Details Onset yesterday + headache x a few days + congestion and ST Denies fever/chills She denies body aches or fatigue + work exposure to covid and sick contac ts with flu She admits to flu shot She has taken [place] cold medicine which helped slightly She denies ear pain [facility] Medical History (Updated 10/11/24 @ 16:02 by Filiberto Bone, [facility]) Migraines Social History Housing: House Patient Tobacco Use Status: Never used Tobacco e-Cigarette/Vaping Use: Never Used service: No Current occupational status: employed Cognitive needs: No Hearing needs: No Vision needs: Yes Review of Systems Const Denies body aches, Denies chills, Denies fatigue and Denies fever(s) Eyes Denies change in vision ENT Denies dizziness, Denies otalgia, Reports nasal discharge, Denies sinus pressure and Reports sore throat Card Denies chest pain and Denies dyspnea Resp Reports cough and Denies dyspnea GI Denies abdominal pain Musc Denies myalgias Neuro Denies dizziness Endo Denies fatigue Physical Exam Vital Signs: Last Vital Signs Temp 97.7 F 12/08/24 08:17 Pulse 81 12/08/24 08:17 BP 122/80 12/08/24 08:17 Pulse Ox 98 12/08/24 08:17 Oxygen Delivery Method Room Air 12/08/24 08:17 General: Non-toxic, NAD. Speaking full sentences. Skin: Warm dry throughout Eye: EOMI HENT: Airway patent. Uvula midline. + pharyngeal erythema or edema. No [employer] or exudates Bilateral canals clear. TM non-erythematous, non-bulging. No TM perforation or hemotympanum noted. +rhinorrhea Respiratory: CTA bilaterally. No wheezes, rales or rhonchi Cardiac: RRR. No murmur Neurology: Alert. No aphasia or facial droop. Gait without abnormality Psych: Good mood and affect Results AMB Rapid Strep AMB Rapid Strep Negative Last Edit by CLAIRE Heaton on 12/08/24 08:36 Assessment & Plan Assessment & Plan (1) Upper respiratory tract infection: Code(s): J06.9 - Acute upper respiratory infection, unspecified Qualifiers: URI type: unspecified viral URI Qualified Code(s): J06.9 - Acute upper respiratory infection, unspecified Plan: Patient seen and evaluated. Strep negative Airway patent Lungs CTACOVId/FLU/RSV ordered OTC medicine as directed Increase fluids and rest Patient gave verbal understanding and had no additional questions or concerns at time of discharge All questions answered Orders: Orders AMB Rapid Strep Screen Today Z13.9 - Encounter for screening, unspecified SARS-CoV2/FLU/RSV Today J06.9 - Acute upper respiratory infection, unspecified Coding Level of Care Code Est Pt Level 3 (87239) Diagnoses Viral upper respiratory tract infection J06.9 URI type: unspecified viral URI
== END 2024-12-08 08:42 | disposition home or self-care (01) ==
PROVIDERS: PCP Nurse Practitioner Family; Visit Provider Physician Assistant
DX: J06.9 Acute upper respiratory infection, unspecified (principal); Z13.9 Encounter for screening, unspecified

== ENCOUNTER 2024-12-08 08:06 | Outpatient (REF) | payer OTHER, SELFPAY ==
[2024-12-08 11:37] LABS: Influenza A PCR NEGATIVE (Negative); Influenza B PCR NEGATIVE (Negative); Resp Syncy Virus RNA Qual PCR NEGATIVE (Negative); SARS COV2 PCR INHOUSE NEGATIVE (Negative)
== END 2024-12-08 08:07 | disposition home or self-care (01) ==
LOC: CF 08:06
PROVIDERS: PCP Nurse Practitioner Family; Visit Provider Physician Assistant
DX: J06.9 Acute upper respiratory infection, unspecified (principal)
CPT/HCPCS: 0241U; 87880

== ENCOUNTER 2024-12-27 14:54 | Outpatient (AMB) | payer OTHER, SELFPAY ==
--- NOTE | 2024-12-27 15:08 | AM.OFFWIN_ITS ---
Intake Vital Signs 12/27/24 15:09 Weight 195 lb BP 130/90 H Blood Pressure Location Lt brachial Position Sitting Pulse 90 Pulse Source Pulse Oximeter Temp 97.7 F Temp Source Oral Pulse Oximetry (%) 98 Oxygen Delivery Method Room Air Intake Visit Reasons: EP ?UTI Intake Note: Patient here for stomach pain, itching that started yesterday. Patient Tobacco Use Status: Never used Tobacco Allergies azithromycin [Zithromax Z-Vivek] Allergy (Unknown, Verified 12/08/24 08:25) rash latex Allergy (Unknown, Verified 12/08/24 08:25) HIVES pseudoephedrine Adverse Reaction (Unknown, Verified 12/08/24 08:25) AGITATION Antihistamine Allergy (Unknown, Uncoded 12/08/24 08:25) rash Latex Allergy (Unknown, Uncoded 12/08/24 08:25) rash Do you need a note to return to daycare/school/sports/work: Yes HPI HPI Comments History of Present Illness Details 39 y/o female patient who presents to [facility] walk in clinic with c/o vaginal discharge and itching since yesterday. Reports burning nd discomfort with urination. [facility] Medical History (Updated 12/27/24 @ 15:24 by Janey Brunson NP) Vaginitis and vulvovaginitis Migraines Social History Housing: House Patient Tobacco Use Status: Never used Tobacco e-Cigarette/Vaping Use: Never Used service: No Current occupational status: employed Cognitive needs: No Hearing needs: No Vision needs: Yes Review of Systems Const All systems reviewed & are unremarkable except as noted in HPI and below Physical Exam Vital Signs: Last Vital Signs Temp 97.7 F 12/27/24 15:09 Pulse 90 12/27/24 15:09 BP 130/90 H 12/27/24 15:09 Pulse Ox 98 12/27/24 15:09 Oxygen Delivery Method Room Air 12/27/24 15:09 GI Palpation (GI): Soft to palpation, not firm, nontender, no guarding, not rigid and No hepatosplenomegaly present Auscultation: normal bowel sounds General: Yes bladder normal to palpation External Female Exam: normal external appearance Speculum Exam - Vagina: abnormal vaginal discharge white and malodorous, erythematous and nontender Speculum Exam - Cervix: normal palpation, Cervical os open and nontender Bimanual exam- vagina & uterus: uterine size normal, bladder normal to palpation, normal palpation, No Cervical tenderness present and no cervical motion tenderness Bimanual Exam- Adnexa, other: normal adnexae OB/external & speculum: Cervical os open Assessment & Plan Assessment & Plan (1) Vaginitis and vulvovaginitis: Code(s): N76.0 - Acute vaginitis Plan: Ordered Fluconazole and Metrogel cream Medications: New fluconazole 150 mg PO DAILY 5 tabs 0RF N76.0 - Acute vaginitis metronidazole 0.75%(37.5mg/5gram) 1 appful vaginal BEDTIME 5 days 70 grams 1RF N76.0 - Acute vaginitis Coding Level of Care Code Est Pt Level 4 (57966) Diagnoses Vaginitis and vulvovaginitis N76.0 Time Spent (min) 20
[2024-12-27 15:09] VITALS: BP 130/90; PULSE 90; TEMP 36.5; O2SAT 98
== END 2024-12-27 15:40 | disposition home or self-care (01) ==
PROVIDERS: PCP Nurse Practitioner Family; Visit Provider Nurse Practitioner Family
DX: Z13.9 Encounter for screening, unspecified (principal); N76.0 Acute vaginitis

== ENCOUNTER → 2024-12-27 14:54 | Outpatient (BNVA) | payer OTHER, SELFPAY | PROVIDERS: PCP Nurse Practitioner Family | DX: N76.0 Acute vaginitis (principal) | CPT/HCPCS: 81003 ==

== ENCOUNTER 2025-01-24 12:57 | Outpatient (REF) | payer OTHER, SELFPAY ==
[2025-01-24 16:27] LABS: MANUAL DIFF FLAG NO
[2025-01-24 16:40] LABS: Basophils Percent Auto 0.7 % (0-2); Eosinophils Absolute Auto 0.2 X10*3/uL (0.0-0.4); Eosinophils Percent Auto 4.1 % (0-4); Hemoglobin 13.3 g/dl (12.0-16.0); Imm Gran Abs Auto 0.02 X10*3/uL (0.00-0.03); Imm Gran Pct Auto 0.4 % (0.0-0.4); Lymphocytes Absolute Auto 1.6 X10*3/uL (1.2-4.9); Lymphocytes Percent Auto 29.9 % (20-40); Mean Corpuscular HGB Conc 32.4 g/dl (31.0-35.0); Mean Corpuscular Volume 89.5 fL (80.0-98.0); Mean Platelet Volume 11.2 fL (9.4-12.3); Monocytes Absolute Auto 0.4 X10*3/uL (0.1-1.2); Monocytes Percent Auto 7.3 % (2-11); Neutrophils Absolute Auto 3.1 x10*3/uL (2.0-8.3); Neutrophils Percent Auto 57.6 % (45-73); Platelet Count 257 X10*3/uL (160-400); Red Blood Count 4.58 X10*6/uL (4.20-5.50); White Blood Count 5.4 X10*3/uL (4.8-10.8)
[2025-01-24 17:01] LABS: Alanine Aminotransferase 25 U/L (0-31); Albumin Level 4.1 g/dL (3.5-5.0); Alkaline Phosphatase 53 U/L (39-117); Anion Gap 11 (12-20); Aspartate Amino Transferase 21 U/L (5-31); Bilirubin Total 0.3 mg/dL (0.0-1.0); Blood Urea Nitrogen 11 mg/dL (9-16); Carbon Dioxide 26 mmol/L (22-29); Chloride 108 mmol/L (96-108); Estimated Glomerular Filt Rate > 60; Glucose Random 79 mg/dL (60-115); Potassium 4.1 mmol/L (3.3-5.1); Sodium 141 mmol/L (135-145); Total Protein 7.3 g/dL (6.5-8.0)
[2025-01-25 06:38] LABS: IgA 177 mg/dL (47-310); IgG 1110 mg/dL (600-1640); IgM 115 mg/dL (50-300)
[2025-02-01 18:39] LABS: Immunoglobulin E 52 kU/L (<OR=114)
== END 2025-01-24 12:58 | disposition home or self-care (01) ==
LOC: HO.HMGCLDS 12:57
PROVIDERS: PCP Nurse Practitioner Family; Visit Provider Nurse Practitioner Family
DX: R69 Illness, unspecified (principal)
CPT/HCPCS: 36415; 80053; 82784; 82785; 85025

== ENCOUNTER 2025-02-25 13:50 | Outpatient (AMB) | payer OTHER, SELFPAY ==
[2025-02-25 13:53] VITALS: BP 132/60; PULSE 76; O2SAT 98; BMI 29.3
--- NOTE | 2025-02-25 13:53 | MHC.OFFVIS ---
Vital Signs 02/25/25 13:53 Height 5 ft 8 in Weight 192 lb 12 oz BMI 29.3 BP 132/60 Blood Pressure Location Rt brachial Position Sitting Pulse 76 Pulse Source Pulse Oximeter Pulse Oximetry (%) 98 Oxygen Delivery Method Room Air Intake Visit Reasons: family hx colon cancer Intake Note: NEW PATIENT for colo screening, initial. Pertinent FMHx. Chief Complaint; Pt denies any GI sx at this time. Office Director Required: No Accompanied by: Self / Same As Patient Allergies azithromycin [Zithromax Z-Vivek] Allergy (Unknown, Verified 02/25/25 13:53) rash latex Allergy (Unknown, Verified 02/25/25 13:53) HIVES pseudoephedrine Adverse Reaction (Unknown, Verified 02/25/25 13:53) AGITATION Antihistamine Allergy (Unknown, Uncoded 02/25/25 13:53) rash HPI HPI family hx colon cancer: Details: 40 year old? female is here today for pre colonoscopy screening.? Patient was sent to us by her PCP.? This is her first colonoscopy screening.? Patient denies any gastrointestinal symptoms in the past or at present.? Patient reports however occasionally depending on what she eats she will start with hiccups followed by excessive salivation and vomiting. Patient reports similar symptoms with her mom and her brother.? Patient reports that 2 years ago when she had endometrial ablation patient was under general anesthesia and had severe vomiting and they were unable to wake her up for quite some time. Negative for history of sleep apnea.? Denies any history of cardiac, renal, pulmonary, or hepatic disease.?? No history of infectious? diseases like hepatitis A, B, C, HIV or tuberculosis.? Patient is not on any anticoagulation [facility] Medical History (Updated 02/25/25 @ 14:27 by Patience Amos [facility]) Vomiting Hiccups Vaginitis and vulvovaginitis Migraines Surgical History History of endometrial ablation H/O tubal ligation Family History Father Colon cancer Social History Housing: House Patient Tobacco Use Status: Never used Tobacco e-Cigarette/Vaping Use: Never Used service: No Current occupational status: employed Cognitive needs: No Hearing needs: No Vision needs: Yes Physical Exam Vital Signs: Last Vital Signs Pulse 76 02/25/25 13:53 BP 132/60 02/25/25 13:53 Pulse Ox 98 02/25/25 13:53 Oxygen Delivery Method Room Air 02/25/25 13:53 BMI result Body Mass Index 29.3 Const General: healthy appearing, no acute distress and well developed Nutritional Appearance: well nourished Orientation/consciousness: patient oriented x3 Resp Effort & Inspection: normal respiratory effort, able to speak in complete sentences, no tracheal deviation and symmetric chest movement Auscultation: clear to auscultation bilaterally Cardio Rate: regular rate GI Inspection: Yes normal to inspection and No distended Palpation (GI): Soft to palpation, not firm, nontender and No hepatosplenomegaly present Auscultation: normal bowel sounds General: Yes no CVA tenderness Back/Spine/Pelvis Back: no CVA tenderness Skin General skin exam: elasticity normal, turgor normal and dry skin Neuro General: patient oriented x3 Psych Appearance: grossly normal Mental Status: mental status grossly normal Assessment & Plan Assessment & Plan (1) Hiccups: Code(s): R06.6 - Hiccough Category: Medical (2) Vomiting: Code(s): R11.10 - Vomiting, unspecified Category: Medical Qualifiers: Nausea presence: without nausea Vomiting type: unspecified Qualified Code(s): R11.11 - Vomiting without nausea (3) Family hx of colon cancer: Code(s): Z80.0 - Family history of malignant neoplasm of digestive organs Category: Medical (4) Screen for colon cancer: Code(s): Z12.11 - Encounter for screening for malignant neoplasm of colon Plan Patient denies any cardiac or respiratory symptoms.? Patient reports occasional his cups, excessive salivation and mucus and then vomiting. Patient does not expresses that she has any acid reflux coming up, however given her symptoms we will send her for upper GI series and will order upper endoscopy. Denies any issues with anesthesia in the past.? Denies any history of sleep apnea.? No history infectious diseases in the past or present.? Not on any anticoagulation therapy.? Family history of CRC. Patient denies melena, hematochezia, unintentional weight loss or ribbon like stools.? Discussed at length the pre-procedure,? prep, diet & medications as well as what to expect prior, during and after the procedure.?? Stressed the importance of good bowel prep.? Recommended the use of Vaseline or Calmoseptine OTC & baby wipes with bowel movements to promote comfort.? ?Patient verbalizes understanding and agrees to plan of care.? She was given the opportunity to ask questions and all questions answered.? We will see her after the procedure.? Orders: Orders FL upper GI w Ba Swallow Today K21.9 - Gastro-esophageal reflux disease without esophagitis Medications: New polyethylene glycol 3350 (Miralax) As directed by gastroenterology department at [facility] 238 grams PO ONCE 238 grams 0RF Z12.11 - Encounter for screening for malignant neoplasm of colon bisacodyl (Dulcolax (bisacodyl)) take 4 tabs at noon the day before your colonoscopy 20 mg (4 x 5 mg) PO ONCE 4 tabs 0RF 1 day Z12.11 - Encounter for screening for malignant neoplasm of colon Coding Level of Care Code New Pt Level 4 (12620) Diagnoses Hiccups R06.6 Vomiting without nausea, unspecified vomiting type R11.11 Nausea presence: without nausea Vomiting type: unspecified Family hx of colon cancer Z80.0 Screen for colon cancer Z12.11 Time Spent (min) 45 Comment 35 minutes spent with patient and additional 10 minutes spent reviewing her records
== END 2025-02-25 14:39 | disposition home or self-care (01) ==
LOC: HO.HGI 13:51
PROVIDERS: PCP Nurse Practitioner Family; Visit Provider Nurse Practitioner Family
DX: Z01.818 Encounter for other preprocedural examination (principal); Z12.11 Encounter for screening for malignant neoplasm of colon; Z80.0 Family history of malignant neoplasm of digestive organs; R06.6 Hiccough
CPT/HCPCS: 99202

== ENCOUNTER → 2025-02-25 13:50 | Outpatient (BNVA) | payer OTHER, SELFPAY | PROVIDERS: PCP Nurse Practitioner Family; Visit Provider Nurse Practitioner Family ==

== ENCOUNTER 2025-08-22 08:12 | Outpatient (AMB) | payer OTHER, SELFPAY ==
--- OUTSIDE RECORDS SUMMARY | 2025-08-22 08:16 | XMS_ITS | Encounter Summary ---
Author Organization [facility] Address [address] [place] [id number] Phone Care Team Providers Care Media Relations Manager Name Role Phone Jaime Ramos MD Primary Care Provider Filiberto Bone NP Primary Care Provider + Encounter Details Date Type Department Care Team (Late st Contact Info) Description 11/17/2023 Procedure Pass [facility], [address] [address] Social History Tobacco Use Types Packs/Day Years Used Date Smoking Tobacco: Never Smokeless Tobacco: Never Alcohol Use Standard Drinks/Week Comments Yes 0 (1 standard drink = 0.6 oz pur e alcohol) 3 drinks a month Education Answer Date Recorded Are you interested in more education? Not on fernandez e 03/06/2023 Are you concerned about learning? Not on file 03/06/2023 No 03/06/2023 No 03/06/2023 Digital Access Answer Date Recorded No 04/01/2023 No 04/01/2023 Reliable internet access at home? Not on file 04/01/2023 Device with a working camera? Not on file Intimate Partner Violence Answer Date R ecorded Denied Basic Needs Not on file 03/05/2023 In the past 12 months have y ou been in a relationship with a person who hurts, threatens, or tries to control you? No 03/05/2023 Worried food would run out Not on file 03/05 In the past 12 months have y ou been in a relationship with a person who hurts, threatens, or tries to control you? No 03/05/2023 Comments No Sex and Gender Information Value Date Recorded Sex Assigned at Female 03/02/2020 11:28 AM EDT Legal Sex Female 4:40 PM EDT Gender Identity Female 03/02/2020 11:28 AM EDT Sexual Orientation Straight 03/02/2020 11 :28 AM EDT Occupation Industry Job Start Date Job End Date Working Not on file Not on file Not on file documented as of this encounter Plan of Treatment Not on file documented as of this encounter Visit Diagnoses Not on filedocumented in this encounter Care Teams Media Relations Manager Relationship Specialty Start Date End Date Jaime Ramos MD [address] [place] [address] [place] [address] PCP - General Internal Medicine 02/14/23 06/02/25 Filiberto Bone NP [address] [place] [address] [place] [address] PCP - General Nurse Practitioner 06/03/25 documented as of this encounter Additional Source Comments The information contained in this document represents components of the legal health record. It is not the complete legal health record.[facility]
--- OUTSIDE RECORDS SUMMARY | 2025-08-22 08:16 | XMS_ITS | Clinical Summary ---
Author Organization [facility] Address [address] [place] [id number] Phone Care Team Providers Care Rn Anesthetist Name Role Phone Filiberto Bone NP Primary Care Provider + Allergies Active Allergy Reactions Criticality Noted Date Comments Latex Hives 05/21/2018 Azithromycin Hives 05/21/2018 Medications MULTIVITAMIN ORAL Take by mouth. Active cartilage/colla gen II/hyaluron (MOVE FREE ULTRA ORAL) Take by mouth. Active BIOTIN ORAL Take by mouth. Active aspirin-acetami nophen-caffeine (EXCEDRIN MIGRAINE) 250-250-65 mg per tablet Take 1 tablet by mouth every 6 (six) hours as needed for pain (specific location in comments). Active SUMAtriptan (IMITREX) 25 MG tablet 04/05/2025 Active Active Problems Problem Noted Date Diagnosed Date Adjustment disorder with depressed mood 02/26/20 23 ASCUS with positive high risk HPV cervical 03/07 Overview (04/07/2025): ASCUS HPV POS (neg 16/18/45): colposcopy 02/2020 with bx with HUGH I Repeat pap 2020: NSIL, HPV negative ASCCP: repeat cotesting 2023: NSIL, HPV neg Resume routine screening Resolved Problems Problem Noted Date Diagnosed Date Resolved Date Normal intrauterine , antepartum 11/25/2019 01/04/2020 Full-term premature rupture of membranes with onset of labor within 24 hours of rupture 11/25/2019 11/26/2019 High blood pressure affectin g in third trimester, antepartum 11/25/2019 01/04/2020 Uterine size-date discrepanc y in third trimester 10/21/2019 01/04/2020 Overview (10/29/2019): US ordered, 37% on 10/25/2019 Assessment & Plan (10/29/2019 3:36 PM EST): US this week 37%, patient reports measuring small with prior Assessment & Plan (10/21/2019 2:36 PM EST): Growth and BPP ordered with next apt. Reinforced importance of movement. Decreased movements in third trimester 9 11/05/2019 Multigravida of advanced mat ernal age in third trimester 06/25/2019 01/04/2020 Overview (06/25/2019): o Risks of aneuploidy discussed w patient. o Offered - Offer cell free DNA - Level 2 - Offer [facility] and amnio o Pt. chooses level 2 sono only Sterilization 06/01/2019 01/04/2020 Overview (11/26/2019): Requests sterilization. MH papers signed 07/22/2019. PPTL performed 11/26/2019 Supervision of normal 05/06/2019 01/04/2020 Overview (11/05/2019): Childbirth Ed? Rh pos Tdap given Flu will get outside Hgb 12 GTT 99 at 22 weeks, repeat 77 GBS neg PPBC TL, papers signed screening declines all Assessment & Plan (11/05/2019 8:09 PM EST): Reviewed [facility], signs of labor. No concerns today. Looking forward to delivery. Rubella non-immune status, antepartum 05/06/2019 01/04/2020 Bartholin's gland cyst 04/05/201901/04 Overview (04/16/2019): Right side. Approximately 1.5 cm in diameter. Not fluctuant on exam. Prescribed keflex 04/02/2019 04/16/2019: I and D performed as it increased in size on abx. Encounters Date Type Department Care Team Description 06/03/2025 9:58 AM EDT - 06/03/2025 11:59 PM EDT Hospital Encounter [address] [address] Jaime Ramos MD Discharge Disposition: Home or Self Care 12/02/2024 Procedure Pass [address] [address] from Last 3 Months Immunizations Immunization Administration Dates Next Due Influenza Quadrivalent MDCK Preservative Free IM 08/23/2018 Influenza Quadrivalent Prese rvative Free IM 08/11/2021,07/28/2020,08/20/2019,2015 Influenza Quadrivalent w/ Preservative IM 10/30/2023 MMR 11/27/2019 Tdap 09/22/2019 Family History Medical History Relation Comments Epilepsy Daughter infantile seizur es Cancer Father Colon cancer, pr ostate cancer Colon cancer Father Hypertension Father No Known Problems Maternal Grandfather No Known Problems Maternal Grandmother No Known Problems Mother No Known Problems Paternal Grandfather Stroke Paternal Grandmother Relation Status Comments Daughter Father Alive Maternal Grandfather Maternal Grandmother Mother Alive Paternal Grandfather Paternal Grandmother Social History Tobacco Use Types Packs/Day Years Used Date Smoking Tobacco: Never Smokeless Tobacco: Never Tobacco Cessation:Counseling Given: Not Answered Alcohol Use Standard Drinks/Week Comments Not Currently 0 (1 standard drink = 0.6 oz pur e alcohol) 1 drink/month Education Answer Date Recorded Are you interested [...] file Not on file Not on file Last Filed Vital Signs Vital Sign Reading Time Taken Comments Blood Pressure 118/78 04/07/2025 3:35 PM EDT Pulse 60 03/05/2023 2:45 PM EDT Temperature 36.7 C (98.1 F) 03/05/2023 2:45 PM EDT Respiratory Rate 16 03/05/2023 2:45 PM EDT Oxygen Saturation 100% 03/05/2023 2:45 PM EDT Inhaled Oxygen Concentration - - Weight 88.5 kg (195 lb) 04/07/2025 3:35 PM EDT Height 172.7 cm (5' 8 ) 04/06/2024 1:55 PM EDT Body Mass Index 29.65 04/06/2024 1:55 PM EDT Plan of Treatment Health Maintenance Due Date Last Done Comments DEPRESSION SCREENING 1995 HEPATITIS C SCREENING 2001 SCREENING FOR DIABETES 2018 PAP SMEAR 04/06/2025 04/06/2024, 09/10, 01/04/2020, Additional history exists INFLUENZA VACCINE (#1) 2025 , 10/30/2023, 08/11/2021, Additional history exists COVID-19 VACCINE (2024- season) 2025 08/06/2021, 11/28/2020, 11/07/2020 MAMMOGRAM 06/03/2027 06/03/2025, 04/0 06/2024, 02/14/2023 Adult Td,Tdap Booster 09/22/2029 09/22/2019 HIV ONE-TIME SCREENING (18-65 YEARS) Completed 04/02/2019 SMOKING STATUS SCREENING (Once After 26 Yrs) Completed 06/03/2025 HEPATITIS A VACCINES Aged Out No long er eligible based on patient's age to complete this topic HIB VACCINES Aged Out No longer eligi ble based on patient's age to complete this topic MENINGOCOCCAL VACCINES (ACWY) Aged Out No longer eligible based on patient's age to complete this topic MENINGOCOCCAL VACCINES (B) Aged Out N o longer eligible based on patient's age to complete this topic PNEUMOCOCCAL VACCINES (0-49 years) Aged Out No longer eligible based on patient's age to complete this topic Medical Devices Not on file Procedures Procedure Name Priority Date/Time Associated Diagnosis Comments BI MAMMOGRAM SCREENING WITH TOMOSYNTHESIS WITH CAD (BILATERAL) Routine 06/03/2025 10:14 AM EDT Visit for screening mammogram PAP TEST Routine 04/06/2024 12:00 AM EDT from Last 3 Months or Most Recently Relevant to Health Maintenance Results * BI MAMMOGRAM SCREENING WITH TOMOSYNTHESIS WITH CAD (BILATERAL) (06/03/2025 10:14 AM EDT) Anatomical Region Laterality Modality Breast Left, Breast Right, Breast Bilateral Bila teral Mammography 06/06/2025 12:2 8 PM EDT Impressions 06/06/2025 12:35 PM EDT No mammographic evidence of malignancy in either breast. Annual screening mammography is recommended. BI-RADS 1 NEGATIVE The patient will be notified of the results and recommendations. Narrative 06/06/2025 12:35 PM EDT BI MAMMOGRAM SCREENING WITH TOMOSYNTHESIS WITH CAD (BILATERAL) Additional patient information: Screening. COMPARISON: Comparison is made with relevant prior imaging. Breast composition: There are scattered areas of fibroglandular density. FINDINGS: No abnormal masses, suspicious calcifications, or other significant findings are identified mammographically in either breast. Procedure Note Elvis Torres MD - 06/06/2025 BI MAMMOGRAM SCREENING WITH TOMOSYNTHESIS WITH CAD (BILATERAL) Additional patient information: Screening. COMPARISON: Comparison is made with relevant prior imaging. Breast composition: There are scattered areas of fibroglandular density. FINDINGS: No abnormal masses, suspicious calcifications, or other significantfindings are identified mammographically in either breast. IMPRESSION: No mammographic evidence of malignancy in either breast. Annual screening mammography is recommended. BI-RADS 1 NEGATIVE The patient will be notified of the results and recommendations. Jaime Ramos MD IMG MG EXAMS Final R esult * Pap Test (04/06/2024 12:00 AM EDT) Report [address] [address] Warp Coiler: Falguni Larkin MD ALMOND BLANCHER OPERATOR Cytology Report FINAL DIAGNOSIS A. PAP SMEAR (THIN PREP) CE: SPECIMEN ADEQUACY: Satisfactory for evaluation; transformation zone present. INTERPRETATION: NEGATIVE FOR INTRAEPITHELIAL LESION OR MALIGNANCY. This specimen was analyzed by the automated ThinPrep Imaging System ([employer].) and manually rescreened by a credit card clerk and/or pathologist. Electronically Signed Out By: OTIS Gordon(ASCP) OTIS Wheeler(ASCP) The Pap test is a screening test primarily for squamous cancers and precursors and has associated false-negative and false-positive results. New technologies such as liquid-based preparations may decrease but will not eliminate all false-negative results. Regular sampling and follow-up of unexplained clinical signs and symptoms are recommended to minimize false negative results. PROCEDURES/ADDENDA HPV Testing (Requested) Ordered Date: 04/07/2024 A. PAP SMEAR (THIN PREP) CE: Human Papilloma Virus Test NEGATIVE for high-risk Human Papilloma Virus types 16, 18, 45 and the Other high risk probe set (Includes 31, 33, 35, 39, 51, 52, 56, 58, 59, 66, 68) Note: Testing performed by [employer] Onclarity HR-HPV analysis. Clinical correlation is advised. This HPV test was performed at [facility], [address] [place] [address]. This test has been FDA approved for both SurePath and ThinPrep cervical cytology specimens. The accuracy and precision of this test for all other specimen sources has been verified in the Cytopathology Laboratory of the [facility] and has not been cleared or approved by the U.S. Food and Drug Administration. Clinical correlation is advised. CLINICAL HISTORY Date of Last Menstrual Period: Not Provided Menstrual History: Unknown Other Clinical Conditions: Screening Pap SPECIMEN SOURCE A: PAP SMEAR (THIN PREP) CE Patient Name: EULOGIO MEJÍA : 1985 (Age: 39) Sex: F Institution: [facility] Location: [facility] Date of Collection: 04/06/2024 Date of Reported: 04/12/2024 18:07 Results to: Johnny Guallpa MD [facility] Final Diagnosis A. PAP SMEAR (THIN PREP) CE: SPECIMEN ADEQUACY: Satisfactory for evaluation; transformation zone present. INTERPRETATION: NEGATIVE FOR INTRAEPITHELIAL LESION OR MALIGNANCY. This specimen was analyzed by the automated ThinPrep Imaging System ([employer].) and manually rescreened by a credit card clerk and/or pathologist. [facility] Results\Inte rpretation A. PAP SMEAR (THIN PREP) CE: Human Papilloma Virus TestNEGATIVE for high-risk Human Papilloma Virus types 16, 18, 45 and the Other high risk probe set (Includes 31, 33, 35, 39, 51, 52, 56, 58, 59, 66, 68)Note: Testing performed by [employer] Onclarity HR-HPV analysis. Clinical correlation is advised. This HPV test was performed at [facility], [address] [place] [address]. This test has been FDA approved for both SurePath and ThinPrep cervical cytology specimens. The accuracy and precision of this test for all other specimen sources has been verified in the Cytopathology Laboratory of the [facility] and has not been cleared or approved by the U.S. Food and Drug Administration. Clinical correlation is advised. [facility] Conversion Type 04/06/2024 9:11 AM EDT us Johnny Guallpa MD CYTOLOGY ORDERABLES Edited Resul t - Final TYSON PRABHA [address] [place] [address] [address] from Last 3 Months or Most Recently Relevant to Health Maintenance Insurance HMO Member Subscriber Plan / Payer (Ef fective 2022-Present) Name:MejíaEulogio jay Relation to Subscriber:Self Name:MejíaEulogio jay Payer ID:Not on file Type:HMO Address: [address] SAFETY NET PARTIAL HMO Member Subscriber Plan / Payer (Ef fective 2022-Present) Name:Damon Eulogio Relation to Subscriber:Self Name:DamonEulogio Payer ID:Not on file Type:HMO Address: [address] SAFETY NET PARTIAL HMO Member Subscriber Plan / Payer (Ef fective 2022-Present) Name:MejíaEulogio jay Relation to Subscriber:Self Name:MejíaEulogio jay Payer ID:Not on file Type:HMO Address: [address] SAFETY NET PARTIAL O Member Subscriber Plan / Payer (Ef fective 2022-Present) Name:MejíaEulogio jay Relation to Subscriber:Self Name:MejíaEulogio jay Payer ID:Not on file Type:HMO Address: [address] SAFETY NET PARTIAL HMO Member Subscriber Plan / Payer (Ef fective 2022-Present) Name:MejíaEulogio jay Relation to Subscriber:Self Name:MejíaEulogio jay Payer ID:Not on file Type:HMO Address: [address] SAFETY NET PARTIAL O Member Subscriber Plan / Payer (Ef fective 2022-Present) Name:MejíaEulogio jay Relation to Subscriber:Self Name:MejíaEulogio jay Payer ID:Not on file Type:HMO Address: [address] SAFETY NET PARTIAL Advance Directives For more information, please contact: [phone] (9AM - 5PM [facility], Friday-Friday) Documents on File Type Date Recorded 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 03/06/2023 12:11 PM * Full Code (Latest Code Status on File) Date Activated Date Inactivated Comments 03/05/2023 10:53 AM Question Answer Comments Code Status Confirmed With: Patient * Full Code (Presumed) Date Activated Date Inactivated Comments 11/26/2019 10:46 PM 11/27/2019 3:06 PM * Full Code (Presumed) Date Activated Date Inactivated Comments 11/26/2019 4:47 AM 11/26/2019 10:46 PM * Full Code (Presumed) Date Activated Date Inactivated Comments 11/25/2019 10:11 AM 11/26/2019 4:47 AM * Full Code (Presumed) Date Activated Date Inactivated Comments 09/14/2019 5:39 PM 09/14/2019 8:57 PM Care Teams Rn Anesthetist Relationship Specialty Start Date End Date Filiberto Bone NP [facility] [place] [address] PCP - General Nurse Practitioner 06/03/25 Additional Source Comments The information contained in this document represents components of the legal health record. It is not the complete legal health record.[facility]
--- OUTSIDE RECORDS SUMMARY | 2025-08-22 08:17 | XMS_ITS | Encounter Summary ---
Author Organization [facility] Address [address] [place] [address] Phone Care Team Providers Care Front Desk Supervisor Name Role Phone Jaime Ramos MD Primary Care Provider Filiberto Bone NP Primary Care Provider + Encounter Details Date Type Department Care Team (Late st Contact Info) Description 12/02/2024 Procedure Pass [facility], [address] [address] Social History Tobacco Use Types Packs/Day Years Used Date Smoking Tobacco: Never Smokeless Tobacco: Never Alcohol Use Standard Drinks/Week Comments Not Currently [...] on filedocumented in this encounter Care Teams Front Desk Supervisor Relationship Specialty Start Date End Date Jaime Ramos MD [address] [place] [address] [place] [address] PCP - General Internal Medicine 02/14/23 06/02/25 Filiberto Bone NP [address] [place] [address] [place] [address] PCP - General Nurse Practitioner 06/03/25 documented as of this encounter Additional Source Comments The information contained in this document represents components of the legal health record. It is not the complete legal health record.[facility]
--- OUTSIDE RECORDS SUMMARY | 2025-08-22 08:17 | XMS_ITS | Encounter Summary ---
Author Organization [facility] Address [address] [place] [address] Phone Care Team Providers Care Inventory Transcriber Name Role Phone Jaime Ramos MD Primary Care Provider Filiberto Bone NP Primary Care Provider + Encounter Details Date Type Department Care Team (Late st Contact Info) Description 03/05/2023 Procedure Pass [place] Admitting Dept - Virtual Department [address] [place] [address] Social History Tobacco Use Types Packs/Day Years Used Date Smoking Tobacco: Never Smokeless Tobacco: Never Alcohol Use Standard Drinks/Week Comments Yes 0 (1 standard drink = 0.6 oz pur e alcohol) 3 drinks a month Education Answer Date Recorded Are you interested in more education? Not on fernandez e 03/06/2023 Are you concerned about learning? Not on file 03/06/2023 No 03/06/2023 No 03/06/2023 Intimate Partner Violence Answer Date R ecorded [...] on filedocumented in this encounter Care Teams Inventory Transcriber Relationship Specialty Start Date End Date Jaime Ramos MD [address] [place] [address] [place] [address] PCP - General Internal Medicine 02/14/23 06/02/25 Filiberto Bone NP [address] [place] [address] [place] [address] PCP - General Nurse Practitioner 06/03/25 documented as of this encounter Additional Source Comments The information contained in this document represents components of the legal health record. It is not the complete legal health record.[facility]
--- OUTSIDE RECORDS SUMMARY | 2025-08-22 08:17 | XMS_ITS | Encounter Summary ---
Author Organization [facility] Address [address] [place] [address] Phone Care Team Providers Care Adult School Counselor Name Role Phone Bryce Montes DO Primary Care Provider [phone]- [phone] Jaime Ramos MD Primary Care Provider Filiberto Bone NP Primary Care Provider + Encounter Details Date Type Department Care Team (Late st Contact Info) Description 11/26/2019 Procedure Pass [place] Admitting Dept - Virtual Department [address] [place] [address] Social History Tobacco Use Types Packs/Day Years Used Date Smoking Tobacco: Never Smokeless Tobacco: Never Alcohol Use Standard Drinks/Week Comments Yes 0 (1 standard drink = 0.6 oz pur e alcohol) 2xs a month Comments Yes Sex and Gender Information Value Date Recorded [...] on filedocumented in this encounter Care Teams Adult School Counselor Relationship Specialty Start Date End Date Bryce Montes DO [address] [place] [address] PCP - General Internal Medicine 03/31/18 02/13/23 Jaime Ramos MD [address] [place] [address] [place] [address] PCP - General Internal Medicine 02/14/23 06/02/25 Filiberto Bone NP [address] [place] [address] [place] [address] PCP - General Nurse Practitioner 06/03/25 documented as of this encounter Additional Source Comments The information contained in this document represents components of the legal health record. It is not the complete legal health record.[facility]
--- OUTSIDE RECORDS SUMMARY | 2025-08-22 08:17 | XMS_ITS | Encounter Summary ---
Author Organization [facility] Address [address] [place] [address] Phone Care Team Providers Care Stock Sorter Name Role Phone Bryce Montes DO Primary Care Provider +1- [phone] Jaime Ramos MD Primary Care Provider Filiberto Bone NP Primary Care Provider + Encounter Details Date Type Department Care Team (Late st Contact Info) Description 11/05/2022 Procedure Pass [facility], [address] [address] Social History Tobacco Use Types Packs/Day Years Used Date Smoking Tobacco: Never Smokeless Tobacco: Never Alcohol Use Standard Drinks/Week Comments Yes 0 (1 standard drink = 0.6 oz pur e alcohol) rare Comments No Sex and Gender Information Value [...] on filedocumented in this encounter Care Teams Stock Sorter Relationship Specialty Start Date End Date Bryce Montes DO [address] [place] [address] PCP - General Internal Medicine 03/31/18 02/13/23 Jaime Ramos MD [address] [place] [address] [place] [address] PCP - General Internal Medicine 02/14/23 06/02/25 Filiberto Bone NP [address] [place] [address] [place] [address] PCP - General Nurse Practitioner 06/03/25 documented as of this encounter Additional Source Comments The information contained in this document represents components of the legal health record. It is not the complete legal health record.[facility]
--- NOTE | 2025-08-22 08:21 | AM.OFFWIN_ITS ---
Intake Vital Signs 08/22/25 08:22 Height 5 ft 8 in Weight 168 lb BMI 25.5 BP 94/70 Blood Pressure Location Lt brachial Position Sitting Respiration 15 Pulse 76 Pulse Source Pulse Oximeter Temp 98 F Temp Source Oral Pulse Oximetry (%) 98 Oxygen Delivery Method Room Air Intake Visit Reasons: EP-sinus infection Intake Note: Pt is here today c/o sinus pressure and congestion x4days Patient Tobacco Use Status: Never used Tobacco Allergies azithromycin (Zithromax Z-Vivek) Allergy (Unknown, Verified 08/22/25 08:23) rash latex Allergy (Unknown, Verified 08/22/25 08:23) HIVES pseudoephedrine Adverse Reaction (Unknown, Verified 08/22/25 08:23) AGITATION Antihistamine Allergy (Unknown, Uncoded 08/22/25 08:23) rash HPI HPI Comments History of Present Illness Details History - The patient is a 40-year-old female pr esenting with symptoms suggestive of a sinus infection. - Symptoms began after returning home fr om work on Friday night, with a significant cough and production of thick phlegm. - Reports sinus pain and pressure, along with a headache, but no nasal discharge. - No ear pain, although she has a histor y of frequent ear infections as a child. - Mild sore throat noted, which has sinc e improved. - Denies any shortness of breath or whee zing. - Nela-skz-jstddnq medications such as S udafed and Indigo-Russell have been used, with the latter providing some relief by aiding sleep. 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 - She denies OVALLES, CP, SOB, abd pain, n/v/ d, or known sick contacts. Physical Exam General: Cooperative, healthy appearing, comfortable and no acute distress Orientation/consciousness: Patient oriented x3 Limitations: No limitations Head: Normal to inspection Ears: Hearing grossly normal bilaterally, external ears normal and TM's normal bilaterally Nose: Normal external nose present, normal nares present, and no nasal discharge present. Face and sinus: Sinuses tender to palpation, sinus pain and pressure noted. Mouth: Normal oral and palatal mucosa present and moist mucous membranes noted. Throat: Tonsils normal. Uvula is midline. Posterior oropharynx with erythema and no exudates Neck: Normal visual inspection, full ROM. No lymphadenopathy noted, slight neck pain noted. Respiratory: Clear to auscultation bilaterally. Normal respiratory effort, able to speak in complete sentences. No respiratory distress, not tachypneic, no tripod positioning and no use of accessory muscles. Cardiovascular: Regular rate and rhythm. Normal S1 and S2 Skin: No rashes or lesions noted Patient was informed and verbally consented to the use of an ambient scribe for clinic note documentation during this visit [facility] Medical History (Updated 02/25/25 @ 14:27 by Patience Amos [facility]) Vomiting Hiccups Vaginitis and vulvovaginitis Migraines Surgical History History of endometrial ablation H/O tubal ligation Family History Father Colon cancer Social History Housing: House Patient Tobacco Use Status: Never used Tobacco e-Cigarette/Vaping Use: Never Used service: No Current occupational status: employed Cognitive needs: No Hearing needs: No Vision needs: Yes Review of Systems Const All systems reviewed & are unremarkable except as noted in HPI and below Physical Exam Vital Signs: Last Vital Signs Temp 98 F 08/22/25 08:22 Pulse 76 08/22/25 08:22 Resp 15 08/22/25 08:22 BP 94/70 08/22/25 08:22 Pulse Ox 98 08/22/25 08:22 Oxygen Delivery Method Room Air 08/22/25 08:22 BMI result Body Mass Index 25.5 Assessment & Plan Assessment & Plan (1) URI with cough and congestion: Code(s): J06.9 - Acute upper respiratory infection, unspecified Plan Most likely URI vs covid vs flu vs RSV vs viral illness plan - Conduct a respiratory panel to rule out other respiratory illnesses. - Prescribe medications including a cough medicine, decongestant, and nasal spray to alleviate symptoms. - Symptomatic treatment with zuha-ozg-vdpsqos medications has been effective in reducing symptoms. - will call with the results - follow up with PCP Orders: Orders Resp Pathogen Panel - [facility] Today J06.9 - Acute upper respiratory infection, unspecified Medications: New benzonatate 100 mg PO bid-tid PRN 21 caps 0RF Cough 7 days cetirizine-pseudoephedrine 5-120 mg ER 1 tab PO BID 14 tabs 0RF 7 days fluticasone propionate 50 mcg/actuation administer into each nostril 1 spray intranasal Q12H 16 grams 0RF Coding Level of Care Code Est Pt Level 3 (61708) Diagnoses URI with cough and congestion J06.9
[2025-08-22 08:22] VITALS: BP 94/70; PULSE 76; RESP 15; TEMP 36.6; O2SAT 98; BMI 25.5
== END 2025-08-22 09:07 | disposition home or self-care (01) ==
PROVIDERS: PCP Nurse Practitioner Family; Visit Provider Physician Assistant Medical
DX: J06.9 Acute upper respiratory infection, unspecified (principal)

== ENCOUNTER 2025-08-22 08:12 | Outpatient (REF) | payer OTHER, SELFPAY ==
[2025-08-22 11:07] LABS: Chlamydia pneumoniae PCR Not Detected (Not Detect.); Coronavirus 229E PCR Not Detected (Not Detect.); Coronavirus HKU1 PCR Not Detected (Not Detect.); Coronavirus NL63 PCR Not Detected (Not Detect.); Coronavirus OC43 PCR Not Detected (Not Detect.); RSV PCR Not Detected (Not Detect.); Rhino/Enterovirus PCR Not Detected (Not Detect.)
[2025-08-22 11:49] LABS: SARS-CoV-2 PCR Not Detected (Not Detect.)
[2025-08-22 11:50] LABS: Influenza A H1 PCR Not Detected (Not Detect.); Influenza A H1-2009 PCR Not Detected (Not Detect.); Influenza A H3 PCR Not Detected (Not Detect.)
== END 2025-08-22 08:13 | disposition home or self-care (01) ==
LOC: HO.LNP 08:12
PROVIDERS: PCP Nurse Practitioner Family; Visit Provider Physician Assistant Medical
DX: J06.9 Acute upper respiratory infection, unspecified (principal)
CPT/HCPCS: 87633

== ENCOUNTER 2025-10-08 09:44 | Outpatient (AMB) | payer OTHER, SELFPAY ==
--- OUTSIDE RECORDS SUMMARY | 2025-10-08 09:45 | XMS_ITS | Continuity of Care Document ---
Author Name [facility] Organization [facility] Care Team Providers Care Fly Winder Name Role Phone [facility] Unavailable Unavailable Procedures Combined list of: 1) Procedures from Department of Veterans Affairs facilities going back up to thelast 18 months, not all [place] non-surgical procedures are included; 2) All procedures from the Department of Defense facilities. Procedure Procedure Type Code Date Perfomer Comments Shasta shelia ULTRASOUND, UTERUS, REAL TIME WITH IMAGE DOCUMENTATION, AND MATERNAL EVALUATION, FIRST TRIMESTER (< 14 WEEKS 0 DAYS), TRANSABDOMINAL APPROACH; SINGLE OR FIRST GESTATION 06/27/2005 [facility] ULTRASOUND, UTERUS, REAL TIME WITH IMAGE DOCUMENTATION,TRANSVAGINAL 06/13/2005 [facility] ULTRASOUND, UTERUS, REAL TIME WITH IMAGE DOCUMENTATION,TRANSVAGINAL 06/10/2005 [facility] ULTRASOUND, UTERUS, REAL TIME WITH IMAGE DOCUMENTATION, LIMITED (EG, HEART BEAT, PLACENTAL LOCATION, POSITION AND/OR QUALITATIVE AMNIOTIC FLUID VOLUME), 1 OR MORE FETUSES 06/08/2005 [facility] URINE TEST, BY VISUAL COLOR COMPARISON METHODS 06/08/2005 [facility] SCREENING PAPANICOLAOU SMEAR ; OBTAINING, PREPARING AND CONVEYANCE OF CERVICAL OR VAGINAL SMEAR TO LABORATORY 06/03/2005 [facility] Social History Combined list of available smoking, tobacco, and other social history from Department of Defense and Veterans Affairs facilities. Social History Type Response Date Comment Rambo bass This section is an empty social history section. [facility]
--- OUTSIDE RECORDS SUMMARY | 2025-10-08 09:48 | XMS_ITS | Encounter Summary ---
Author Organization [facility] Address [address] [place] [phone] Phone Care Team Providers Care Cut Out Marker Name Role Phone Bryce Montes DO Primary Care Provider +1- [phone] Jaime Ramos MD Primary Care Provider Filiberto Bone NP Primary Care Provider + Encounter Details Date Type Department Care Team (Late st Contact Info) Description 11/05/2022 Procedure Pass [facility], [address] [address] Social History Tobacco Use Types Packs/Day Years [...] on filedocumented in this encounter Care Teams Cut Out Marker Relationship Specialty Start Date End Date Bryce Montes DO [address] [place] [address] PCP - General Internal Medicine 03/31/18 02/13/23 Jaime Ramos MD [address] [place] [address] [place] [address] PCP - General Internal Medicine 02/14/23 06/02/25 Filiberto Bone NP [address] [place] [address] [place] [address] PCP - General Nurse Practitioner 06/03/25 documented as of this encounter Additional Source Comments The information contained in this document represents components of the legal health record. It is not the complete legal health record.[facility]
--- OUTSIDE RECORDS SUMMARY | 2025-10-08 09:48 | XMS_ITS | Encounter Summary ---
Author Organization [facility] Address [address] [place] [address] Phone Care Team Providers Care Assistant Account Manager Name Role Phone Jaime Ramos MD Primary Care Provider Filiberto Bone NP Primary Care Provider + Encounter Details Date Type Department Care Team (Late st Contact Info) Description 12/02/2024 Procedure Pass [facility], [address] [address] Social History Tobacco Use Types Packs/Day Years [...] on filedocumented in this encounter Care Teams Assistant Account Manager Relationship Specialty Start Date End Date Jaime Ramos MD [address] [place] [address] [place] [address] PCP - General Internal Medicine 02/14/23 06/02/25 Filiberto Bone NP [address] [place] [address] [place] [address] PCP - General Nurse Practitioner 06/03/25 documented as of this encounter Additional Source Comments The information contained in this document represents components of the legal health record. It is not the complete legal health record.[facility]
--- OUTSIDE RECORDS SUMMARY | 2025-10-08 09:48 | XMS_ITS | Clinical Summary ---
Author Organization [facility] Address [address] [place] [address] Phone Care Team Providers Care Computed Tomography Technologist Name Role Phone Filiberto Bone NP Primary [...] as it increased in size on abx. Immunizations Immunization Administration Dates Next Due Influenza [...] Date Last Done Comments DEPRESSION SCREENING 1995 SCREENING FOR DIABETES 2018 PAP SMEAR 04/06/2025 04/06/2024, 09/10, 01/04/2020, Additional history exists INFLUENZA VACCINE (#1) 2025 , 10/30/2023, 08/11/2021, Additional history exists COVID-19 VACCINE ( season) 2025 08/06/2021, 11/28/2020, 11/07/2020 MAMMOGRAM 06/03/2027 06/03/2025, 04/0 06/2024, 02/14/2023 Adult Td,Tdap Booster 09/22/2029 09/22/2019 HEPATITIS C SCREENING Completed 04/02/2019 HIV ONE-TIME SCREENING (18-65 YEARS) Completed 04/02/2019 [...] PAP TEST Routine 04/06/2024 12:00 AM EDT HEPATITIS B SURFACE ANTIGEN Routine 04/02/2019 2:38 PM EDT Missed period from Last 3 Months or Most Recently [...] Pap Test (04/06/2024 12:00 AM EDT) Report [address] [address] Crate Builder: Falguni Larkin MD COMPUTER CONSULTANT Cytology Report FINAL DIAGNOSIS A. PAP SMEAR (THIN PREP) CE: SPECIMEN ADEQUACY: Satisfactory for evaluation; transformation zone present. INTERPRETATION: NEGATIVE FOR INTRAEPITHELIAL LESION OR MALIGNANCY. This specimen was analyzed by the automated ThinPrep Imaging System (ClaimIt.) and manually rescreened by a sill worker and/or pathologist. Electronically Signed Out By: OTIS [...] 59, 66, 68) Note: Testing performed by [facility] HR-HPV analysis. Clinical correlation is advised. This HPV test was performed at [facility], [address] [place] [address]. This test has been FDA approved for both SurePath and ThinPrep cervical cytology specimens. The accuracy and precision of this test for all other specimen sources has been verified in the Cytopathology Laboratory of the [facility] and has not been cleared or approved by the U.S. Food and Drug Administration. Clinical correlation is advised. CLINICAL HISTORY Date of Last Menstrual Period: Not Provided Menstrual History: Unknown Other Clinical Conditions: Screening Pap SPECIMEN SOURCE A: PAP SMEAR (THIN PREP) CE Patient Name: EULOGIO MEJÍA : 1985 (Age: 39) Sex: F Institution: [facility] Location: [facility] Date of Collection: 04/06/2024 Date of Reported: 04/12/2024 18:07 Results to: Johnny Guallpa MD [facility] Final Diagnosis A. PAP SMEAR (THIN PREP) CE: SPECIMEN ADEQUACY: Satisfactory for evaluation; transformation zone present. INTERPRETATION: NEGATIVE FOR INTRAEPITHELIAL LESION OR MALIGNANCY. This specimen was analyzed by the automated ThinPrep Imaging System (ClaimIt.) and manually rescreened by a sill worker and/or pathologist. [facility] Results\Inte rpretation A. PAP SMEAR (THIN PREP) CE: Human Papilloma Virus TestNEGATIVE for high-risk Human Papilloma Virus types 16, 18, 45 and the Other high risk probe set (Includes 31, 33, 35, 39, 51, 52, 56, 58, 59, 66, 68)Note: Testing performed by [facility] HR-HPV analysis. Clinical correlation is advised. This HPV test was performed at [facility], [address] [place] [address]. This test has been FDA approved for both SurePath and ThinPrep cervical cytology specimens. The accuracy and precision of this test for all other specimen sources has been verified in the Cytopathology Laboratory of the [facility] and has not been cleared or approved by the U.S. Food and Drug Administration. Clinical correlation is advised. [facility] Conversion Type (Conversion Source) 04/06/2024 04/07/2024 9:11 AM EDT us Johnny Guallpa MD CYTOLOGY ORDERABLES Edited Resul t - Final [facility] [address] [place] [address] * Hepatitis B surface antigen (04/02/2019 2:38 PM EDT) HBV SURFACE ANTIGEN Negative Negative [facility] Blood 04/02/2019 2:38 PM EDT 04/02/2019 2:43 PM EDT Johnny Guallpa MD LAB BLOOD BKR ORDERABLES Final R esult [address] [address] from Last 3 Months or Most Recently Relevant to Health Maintenance Insurance [facility] HMO Member Subscriber Plan / Payer (Ef fective 2022-Present) Name:Eulogio Mejía Relation to Subscriber:Self Name:Eulogio Mejía Payer ID:Not on file Type:HMO Address: [address] SAFETY NET PARTIAL [facility] HMO Member Subscriber Plan / Payer (Ef fective 2022-Present) Name:Eulogio Mejía Relation to Subscriber:Self Name:Eulogio Mejía Payer ID:Not on file Type:HMO Address: [address] SAFETY NET PARTIAL [facility] HMO [employer] SAFETY NET PARTIAL [facility] HMO Member Subscriber Plan / Payer (Ef fective 2022-Present) Name:Eulogio Mejía Relation to Subscriber:Self Name:Eulogio Mejía Payer ID:Not on file Type:HMO Address: [address] SAFETY NET PARTIAL [facility] HMO Member Subscriber Plan / Payer (Ef fective 2022-Present) Name:Eulogio Mejía Relation to Subscriber:Self Name:Eulogio Mejía Payer ID:Not on file Type:HMO Address: [place] [id number] [employer] SAFETY NET PARTIAL [facility] HMO Member Subscriber Plan / Payer (Ef fective 2022-Present) Name:Eulogio Mejía Relation to Subscriber:Self Name:Eulogio Mejía Payer ID:Not on file Type:HMO Address: [place] [id number] HEALTH SAFETY NET PARTIAL Advance Directives For more information, please contact: [phone] (9AM - 5PM [facility], Friday-Friday) Documents on File Type Date Recorded Patient Lodge Attendant Expl anation Healthcare Proxy 03/06/2023 12:11 PM [...] 5:39 PM 09/14/2019 8:57 PM Care Teams Computed Tomography Technologist Relationship Specialty Start Date End Date Filiberto Bone NP [address] [place] [address] PCP - General Nurse Practitioner 06/03/25 Additional Source Comments The information contained in this document represents components of the legal health record. It is not the complete legal health record.[facility]
--- OUTSIDE RECORDS SUMMARY | 2025-10-08 09:48 | XMS_ITS | Encounter Summary ---
Author Organization [facility] Address [address] [place] [address] Phone Care Team Providers Care Vein Access Technician Name Role Phone Bryce Montes DO Primary Care Provider +1- [phone] Jaime Ramos MD Primary Care Provider Filiberto Bone NP Primary Care Provider + Encounter Details Date Type Department Care Team (Late st Contact Info) Description 11/26/2019 Procedure Pass [place] Admitting Dept - Virtual Department [address] [place] [address] Social History Tobacco Use Types Packs/Day Years [...] on filedocumented in this encounter Care Teams Vein Access Technician Relationship Specialty Start Date End Date Bryce Montes DO [address] [place] [address] PCP - General Internal Medicine 03/31/18 02/13/23 Jaime Ramos MD [address] [place] [address] [place] [address] PCP - General Internal Medicine 02/14/23 06/02/25 Filiberto Bone NP [address] [place] [address] [place] [address] PCP - General Nurse Practitioner 06/03/25 documented as of this encounter Additional Source Comments The information contained in this document represents components of the legal health record. It is not the complete legal health record.[facility]
--- OUTSIDE RECORDS SUMMARY | 2025-10-08 09:48 | XMS_ITS | Encounter Summary ---
Author Organization [facility] Address [address] [place] [address] Phone Care Team Providers Care Water Treatment Plant Supervisor Name Role Phone Jaime Ramos MD Primary Care Provider Filiberto Bone NP Primary Care Provider + Encounter Details Date Type Department Care Team (Late st Contact Info) Description 03/05/2023 Procedure Pass [place] Admitting Dept - Virtual Department [address] [place] [address] Social History Tobacco Use Types Packs/Day Years [...] on filedocumented in this encounter Care Teams Water Treatment Plant Supervisor Relationship Specialty Start Date End Date Jaime Ramos MD [address] [place] [address] [place] [address] PCP - General Internal Medicine 02/14/23 06/02/25 Filiberto Bone NP [address] [place] [address] [place] [address] PCP - General Nurse Practitioner 06/03/25 documented as of this encounter Additional Source Comments The information contained in this document represents components of the legal health record. It is not the complete legal health record.[facility]
--- OUTSIDE RECORDS SUMMARY | 2025-10-08 09:48 | XMS_ITS | Encounter Summary ---
Author Organization [facility] Address [address] [place] [address] Phone Care Team Providers Care Water Treatment Plant Mechanic Name Role Phone Jaime Ramos MD Primary Care Provider Filiberto Bone NP Primary Care Provider + Encounter Details Date Type Department Care Team (Late st Contact Info) Description 11/17/2023 Procedure Pass [facility], [address] [address] Social History Tobacco Use Types Packs/Day Years [...] this encounter Care Teams Water Treatment Plant Mechanic Relationship Specialty Start Date End Date Jaime Ramos MD [address] [place] [address] [place] [address] PCP - General Internal Medicine 02/14/23 06/02/25 Filiberto Bone NP [address] [place] [address] [place] [address] PCP - General Nurse Practitioner 06/03/25 documented as of this encounter Additional Source Comments The information contained in this document represents components of the legal health record. It is not the complete legal health record.[facility]
[2025-10-08 10:12] VITALS: BP 100/60; PULSE 104; RESP 16; TEMP 36.4; O2SAT 99; BMI 25.4
--- NOTE | 2025-10-08 10:12 | AM.OFFWIN_ITS ---
Intake Vital Signs 10/08/25 10:12 Height 5 ft 8 in Weight 75.75 kg BMI 25.4 BP 100/60 Blood Pressure Location Lt brachial Position Sitting Respiration 16 Pulse 104 H Pulse Source Pulse Oximeter Temp 97.6 F Temp Source Oral Pulse Oximetry (%) 99 Oxygen Delivery Method Room Air Intake Visit Reasons: EP Possible sinus infection Intake Note: Pt is here today c/o sinus pressure and nasal congestion: Pt states has no taste x2days Patient Tobacco Use Status: Never used Tobacco Allergies azithromycin (Zithromax Z-Vivek) Allergy (Unknown, Verified 08/22/25 08:23) rash latex Allergy (Unknown, Verified 08/22/25 08:23) HIVES pseudoephedrine Adverse Reaction (Unknown, Verified 08/22/25 08:23) AGITATION Antihistamine Allergy (Unknown, Uncoded 08/22/25 08:23) rash HPI HPI Comments History of Present Illness Details Chief Complaint: ?Congestion and sinus pressure.? History of Present Illness: 43-year-old female presents with 1?2 day s of nasal congestion and sinus pressure. She reports that when others speak it ?sounds like they?re a million miles away.? This morning she noted her cough ?tasted off? and she is now unable to taste it. She endorses mild, intermittent cough. Denies fever, chills, nausea, vomiting, diarrhea, or vision changes. She is the only person sick at home. She recalls taking prednisone in the past but is unsure how she tolerated it. She reports eating and drinking well. Laboratory data relevant for visit: ? Respiratory viral panel swab (COVID-19, influenza, RSV) collected; results pending. Assessment & Plan 40-year-old female with acute upper resp iratory symptoms most consistent with viral etiology. Problem #1: Acute viral upper respiratory infection / viral sinus congestion Assessment: 1?2 day history of congestion, sinus pressure, muffled hearing, altered taste; no systemic or concerning bacterial features at this time. Plan: * Prescribe oral steroids (prednisone) to reduce nasal inflammation and improve congestion. * Zrde-dys-[id number] symptomatic relief with expectorant/decongestant such as Mucinex. * Respiratory viral panel sent; clinician will call if positive. No call if negative. * Avoid antibiotics at this stage as presentation suggests viral etiology; advise return if symptoms persist >7 days for reassessment and possible antibiotics. * Encouraged adequate hydration and nutrition. Patient verbalized understanding of the plan. No signs of bacterial infection, menigntits, encephalitis, pna PFSH Medical History (Updated 02/25/25 @ 14:27 by Patience Amos, [facility]) Vomiting Hiccups Vaginitis and vulvovaginitis Migraines Surgical History History of endometrial ablation H/O tubal ligation Family History Father Colon cancer Social History Housing: House Patient Tobacco Use Status: Never used Tobacco e-Cigarette/Vaping Use: Never Used service: No Current occupational status: employed Cognitive needs: No Hearing needs: No Vision needs: Yes Review of Systems Narrative Review of Systems: ? HEENT: Positive nasal congestion, sinus pressure, altered taste sensation, muffled hearing. ? Respiratory: Mild intermittent cough. ? Gastrointestinal: Denies nausea, vomiting, diarrhea. ? Eyes: Denies vision changes. All other systems not discussed. Const All systems reviewed & are unremarkable except as noted in HPI and below Physical Exam Exam Exam: Appearance: Alert.? Oriented X3.? No acute distress.?Sounds congested Head: Normocephalic, atraumatic, no step-offs or deformities Eyes: Pupils equal, round and reactive to light.? Neck: Normal inspection.? Neck supple.No meningeal sings Pharynx: WNL patent ? CVS: Normal heart rate and rhythm.? Pulses normal.? Respiratory: No respiratory distress.? Breath sounds normal.? Abdomen: Soft and nontender.? Skin: Skin warm and dry.? Normal skin color.? Normal skin turgor.? Extremities: No lower extremity edema.? No calf ttp. 5/5 strength to bilateral upper and lower extremities Neuro: Oriented X 3.? No motor deficit.? No sensory deficit. CN 2-12 intact Vital Signs: Last Vital Signs Temp 97.6 F 10/08/25 10:12 Pulse 104 H 10/08/25 10:12 Resp 16 10/08/25 10:12 BP 100/60 10/08/25 10:12 Pulse Ox 99 10/08/25 10:12 Oxygen Delivery Method Room Air 10/08/25 10:12 BMI result Body Mass Index 25.4 vss Assessment & Plan Assessment & Plan (1) Upper respiratory tract infection: Code(s): J06.9 - Acute upper respiratory infection, unspecified Qualifiers: URI type: unspecified viral URI Qualified Code(s): J06.9 - Acute upper respiratory infection, unspecified Plan Take your medications as prescribed. If you were prescribed antibiotics today, it is important that you take your medication to their entirety, do not skip any doses, do not finish them early. Follow-up with your primary care provider this week. Go to the emergency department with new or worsening symptoms. In case of emergency call 911 Orders: Orders SARS-CoV2/FLU/RSV Today J06.9 - Acute upper respiratory infection, unspecified Medications: New prednisone 40 mg (2 x 20 mg) PO DAILY 10 tabs 0RF 5 days Coding Level of Care Code Est Pt Level 3 (32884) Diagnoses Viral upper respiratory tract infection J06.9 URI type: unspecified viral URI
== END 2025-10-08 12:29 | disposition home or self-care (01) ==
PROVIDERS: PCP Nurse Practitioner Family; Visit Provider Physician Assistant
DX: J06.9 Acute upper respiratory infection, unspecified (principal)

== ENCOUNTER 2025-10-08 09:44 | Outpatient (REF) | payer OTHER, SELFPAY ==
[2025-10-08 12:27] LABS: Resp Syncy Virus RNA Qual PCR NEGATIVE (Negative); SARS COV2 PCR INHOUSE NEGATIVE (Negative)
== END 2025-10-08 09:45 | disposition home or self-care (01) ==
LOC: HO.LNP 09:44
PROVIDERS: Physician Assistant; PCP Nurse Practitioner Family
DX: J06.9 Acute upper respiratory infection, unspecified (principal)
CPT/HCPCS: 87637